=== PATIENT | female | born 1955 | race Caucasian/White ===

== ENCOUNTER 2024-02-16 13:18 | Emergency (ER) | payer MEDICARE ==
[~2024-02-16] VITALS: Ht 165.1 cm; Wt 87.1 kg
[2024-02-16] MEDS ORDERED: GABA-535 PO (13:52)
[2024-02-16] MEDS ORDERED: ONDA4TAB12 PO (13:52)
[2024-02-16] MEDS ORDERED: LIDO700A47 TOP (13:52)
[2024-02-16] MEDS ORDERED: MORP-92 PO (13:52)
[2024-02-16] MEDS ORDERED: ESCI-8 PO (13:52)
[2024-02-16 14:11] LABS: BILIRUBIN,URINE NEGATIVE (Neg); CLARITY,URINE SLIGHTLY CLOUDY (Clear); COLOR,URINE YELLOW (Yellow); GLUCOSE, URINE NEGATIVE (Neg); KETONES,URINE NEGATIVE (Neg); LEUKOCYTE ESTERASE ,URINE NEGATIVE (Neg); NITRITES, URINE NEGATIVE (Neg); OCCULT BLOOD,URINE NEGATIVE (Neg); PROTEIN,URINE NEGATIVE (Neg); UROBILINOGEN,URINE 0.2 E.U/dL (0.2-1.0)
[2024-02-16 14:17] LABS: RED BLOOD COUNT 3.82 X10'6 (4.20-5.60); RED CELL DISTRIBUTION WIDTH 16.5 % (11.5-14.5)
[2024-02-16 14:19] LABS: HEMATOCRIT 35.8 % (35.0-45.0); HEMOGLOBIN 11.7 g/dl (12.0-16.0); MEAN CORPUSCULAR HEMOGLOBIN 30.7 PG (27.0-31.0); MEAN CORPUSCULAR HGB CONC 32.7 g/dL (33.0-36.5); MEAN CORPUSCULAR VOLUME 93.6 FL (78-98); MEAN PLATELET VOLUME 7.1 FL (7.4-10.4); PLATELET COUNT 219 X10'3 (140-440); WHITE BLOOD COUNT 7.7 X10'3 (4.5-11.0)
[2024-02-16 14:23] LABS: ALANINE AMINOTRANSFERASE 24 U/L (12-78); ALBUMIN 3.4 G/DL (3.4-5.0); ALBUMIN/GLOBULIN RATIO 0.7 (1.1-1.5); ALKALINE PHOSPHATASE 110 IU/L (46-116); ANION GAP 8 (8-16); ASPARTATE AMINO TRANSFERASE 43 U/L (10-37); BLOOD UREA NITROGEN 6 MG/DL (7-18); BUN/CREATININE RATIO 8.3 (10.0-20.0); CALCIUM 9.2 MG/DL (8.5-10.1); CHLORIDE 104 MMOL/L (99-107); CREATININE 0.72 MG/DL (0.40-0.90); GLUCOSE 93 MG/DL (70-104); LIPASE 26 U/L (16-77); SODIUM 139 MMOL/L (135-145); TOTAL PROTEIN 8.5 G/DL (6.4-8.2); eCRCL 67 ML/MIN; eGFR 81 ML/MIN
[2024-02-16 14:23] LABS: SQUAMOUS EPITHELIAL CELL,UR FEW /LPF (FEW); UA COLLECTION TYPE CLN CATCH MIDSTREAM
[2024-02-16 14:24] LABS: BACTERIA,URINE NONE SEEN /HPF (Neg); RBC,URINE 0-2 /HPF (0-2); WBC,URINE 0-4 /HPF (0-4)
[2024-02-16] MEDS ORDERED: iohexol 300mg/ml 100ml inj. ONE (14:37)
[2024-02-16] MEDS: HYDROmorphone inj. 0.5 MG/0.5 ML DISP.SYRIN IV ONE (14:38)
[2024-02-16 15:14] LABS: TOTAL CELLS COUNTED 100
[2024-02-16 15:17] LABS: ANISOCYTOSIS 1+; PLATELET ESTIMATE NORMAL; TEAR DROP CELLS FEW
[2024-02-16 16:02] VITALS: BP 132/86; PULSE 86; RESP 16; TEMP 98.6; O2SAT 98
== END 2024-02-16 16:05 | disposition home or self-care (01) ==
LOC: ER 13:19
DX: K82.8 Other specified diseases of gallbladder (principal); R10.13 Epigastric pain; G89.29 Other chronic pain; M54.9 Dorsalgia, unspecified; Z72.89 Other problems related to lifestyle; Z88.8 Allergy status to other drugs, medicaments and biological substances; Z79.899 Other long term (current) drug therapy
CPT/HCPCS: 36415; 74177; 80053; 81001; 83690; 85007; 85025; 96374; 99285; J1170; Q9967

== ENCOUNTER 2024-09-19 08:36 | Emergency (ER) | payer MEDICARE ==
[~2024-09-19] VITALS: Ht 165.1 cm; Wt 91.2 kg
[~2024-09-19 08:36] MED LIST: ESCI-8 PO; GABA-535 PO; LIDO700A47 TOP; MORP-92 PO; ONDA-243 PO
[2024-09-19] MEDS: normal saline 1000ml 1,000 ML IV ONE (10:13)
[2024-09-19 10:31] LABS: BASOPHILS # (AUTO) 0.3 X10'3 (0-0.2); BASOPHILS % (AUTO) 3.9 % (0-1); EOSINOPHILS # (AUTO) 0.4 X10'3 (0-0.9); PLATELET COUNT 211 X10'3 (140-440); WHITE BLOOD COUNT 7.2 X10'3 (4.5-11.0)
[2024-09-19 10:33] LABS: EOSINOPHILS % (AUTO) 6.1 % (0-6); HEMATOCRIT 36.5 % (35.0-45.0); LYMPHOCYTES # (AUTO) 1.4 X10'3 (1.1-4.8); LYMPHOCYTES % (AUTO) 19.1 % (21-51); MEAN CORPUSCULAR HGB CONC 32.9 g/dL (33.0-36.5); MEAN CORPUSCULAR VOLUME 100.3 FL (78-98); MEAN PLATELET VOLUME 7.6 FL (7.4-10.4); MONOCYTES # (AUTO) 1.1 X10'3 (0-0.9); MONOCYTES % (AUTO) 14.9 % (2-12); RED BLOOD COUNT 3.64 X10'6 (4.20-5.60)
[2024-09-19 10:35] LABS: APTT 30 SECONDS (22-32); D-DIMER 0.53 MG/L FEU (0-0.50); INR 1.3 INR
[2024-09-19 10:39] LABS: ALBUMIN 2.9 G/DL (3.4-5.0); ANION GAP 4 (8-16); BLOOD UREA NITROGEN 4 MG/DL (7-18); BUN/CREATININE RATIO 6.3 (10.0-20.0); CALCIUM 8.6 MG/DL (8.5-10.1); CHLORIDE 103 MMOL/L (99-107); CREATININE 0.63 MG/DL (0.40-0.90); GLUCOSE 128 MG/DL (70-104); POTASSIUM 3.7 MMOL/L (3.5-5.1); PRO BRAIN NATRIURETIC PEPTIDE 500 PG/ML (0-125); SODIUM 136 MMOL/L (135-145); TOTAL CARBON DIOXIDE 29.1 MMOL/L (24-32); eCRCL 76 ML/MIN; eGFR > 90 ML/MIN
[2024-09-19 10:49] LABS: PROTHROMBIN TIME 13.5 SECONDS (9.0-12.0)
[2024-09-19] MEDS: HYDROcodone/acetaminophen 5mg/325mg tablet PO ONE (13:15)
[2024-09-19] MEDS: ondansetron 4mg rapidly disintigrating tab PO ONE (13:15)
[2024-09-19 13:20] VITALS: BP 146/72; PULSE 90; RESP 17; TEMP 98.5; O2SAT 94
== END 2024-09-19 13:31 | disposition home or self-care (01) ==
LOC: ER 08:37
DX: J06.9 Acute upper respiratory infection, unspecified (principal); Z88.8 Allergy status to other drugs, medicaments and biological substances
CPT/HCPCS: 36415; 71046; 80048; 83605; 83880; 84145; 84484; 85025; 85379; 85610; 85730; 87040; 87502; 87503; 93005; 96360; 96361; 99285; A4615; J7030

== ENCOUNTER 2025-03-16 10:54 | Inpatient (IN) | payer OTHER, MEDICARE ==
[~2025-03-16] VITALS: Ht 165.1 cm; Wt 111.0 kg
--- NOTE | 2025-03-16 11:22 | ELECTROCARDIOGRAPH REPORT ---
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 Siva Roberts Measurements Intervals [place] Rate: 98 P: 53 TX: 162 QRS: -56 QRSD: 112 T: 65 QT: 413 QTc: 528 Interpretive Statements Atrial-paced complexes Left anterior fascicular block Abnormal R-wave progression, late transition Minimal ST depression, lateral leads Prolonged QT interval Electronically Signed On 03-16-2025 18:54:[address] Siva Roberts Please click the below link to view image of tracing.
[2025-03-16 11:30] LABS: MEAN PLATELET VOLUME 7.3 FL (7.4-10.4); RED CELL DISTRIBUTION WIDTH 30.6 % (11.5-14.5)
[2025-03-16 11:52] LABS: CREATININE 1.21 MG/DL (0.40-0.90); PRO BRAIN NATRIURETIC PEPTIDE 2407 PG/ML (0-125); TOTAL CARBON DIOXIDE 38.1 MMOL/L (24-32); eCRCL 39 ML/MIN; eGFR 44 ML/MIN
[2025-03-16] MEDS: ondansetron/PF 4mg/2ml inj IV ONE (12:02)
--- NOTE | 2025-03-16 12:29 | RADIOLOGY REPORT ---
CHEST RADIOGRAPH Indication: CP Technique: Single frontal view of the chest was obtained COMPARISON: None FINDINGS: Lines and Tubes: None Lungs: Clear Pleura: No effusion. No pneumothorax. Cardiomediastinal contours: Unremarkable Bones: Unremarkable IMPRESSION: No acute disease.
--- NOTE | 2025-03-16 13:24 | Physician Documentation ---
History of Present Illness ~ Chief Complaint: Mechanical Fall Stated Complaint: FALL Time Seen by MD: 11:10 Primary Medical Doctor: RADHA Source: patient, family, EMS, EMS notes reviewed Mode of Arrival: EMS Exam Limitations: no limitations HPI Chief Complaint: Falls Caveat: None Independent Historians: Paramedics, History of Present Illness: Patient is a 69-year-old woman who comes in having fallen 3 times this morning. She is not know exactly why she fell. She remembers falling. She denies passing out. Patient does remember hitting her head. Patient denies any pain. Patient admits to drinking alcohol daily and last drank alcohol last evening at dinner. Patient denies any chest pain or abdominal pain. Patient has no worsening of her chronic respiratory failure secondary to CHF for which she takes 3 L of oxygen at home. Patient has noticed increasing tremors in her hands and extremities. Patient normally drinks 4 oz of alcohol in the evening with dinner daily. Review of systems: All systems were reviewed and are negative except for what is indicated in the history of present illness. Past Medical History: Chronic back pain, alcoholism, CHF on 3 L of oxygen at home Past Surgical History: Noncontributory Social History: Daily alcohol use, 51 years, no tobacco use or drug use Medications: Reviewed as documented Nursing Notes Allergies: Reviewed as documented in Nursing Notes Tetanus within 5 Years?: No Medication Reconciliation Allergies: Coded Allergies: brexpiprazole (Verified Allergy, Unknown, 02/16/24) valbenazine (Verified Allergy, Unknown, 02/16/24) Scheduled Escitalopram Oxalate (Escitalopram Oxalate), 15 MG PO DAILY, (Reported) Furosemide (Furosemide), 1 TAB PO DAILY, (Reported) Gabapentin (Gabapentin), 1 CAP PO TID, (Reported) Morphine Sulfate (Morphine Sulfate Er), 1 TAB PO TID, (Reported) Scheduled PRN Lidocaine (Lidocaine), 1-2 PATCH TOP DAILY PRN for pain, (Reported) ONDANSETRON ODT 4mg tablet (Ondansetron Odt), 1 TAB PO Q8H PRN for nausea/vomiting, (Reported) Past Medical History Past Medical History: Chronic Back Pain Past Surgical History: no surgical history Alcohol Use: Occasionally Drug Use: none Lives with: Family Lives In: Home Occupation: retired Review of Systems All Other Systems at this time: Reviewed and Negative ROS PATIENT DENIES ANY OTHER ACUTE SYMPTOMS OTHER THAN ABOVE. ALL OTHER SYSTEMS ARE NEGATIVE Physical Exam Vital Signs: Temperature: 97.0, Source: Oral, Heart Rate: 103, Respiratory Rate: 16, BP: 104/56, Pulse Oximetry: 95, Weight: 111.000 Oxygen Flow Rate: 3.0 Pulse Oximetry Reflects: adequate oxygenation Physical Exam General Appearance: MILD DISTRESS, ACUTELY AND CHRONICALLY ILL-APPEARING HEENT: Normal OP, moist oral mucosa, PERRL, EOMI, SCLERAL ICTERUS, ECCHYMOSIS OVER THE RIGHT FOREHEAD Neck: supple, normal ROM, trachea midline Pulmonary: No respiratory distress, CTA, BS equal Cardiac: RRR, no murmur, rub or gallop, GI: nondistended, soft, nontender, normal bowel sounds, no guarding, no rebound Extremities: normal ROM, 2+ PITTING RIGHT LOWER EXTREMITY EDEMA, 1+ PITTING LEFT LOWER EXTREMITY EDEMA, non-tender Skin: intact, dry, warm, JAUNDICE, SPIDER ANGIOMAS ON THE CHEST Neuro: AAOx3, speech is clear, no focal motor weakness, TREMORS IN HANDS AND UPPER EXTREMITIES Psych: normal affect, good eye contact, no apparent hallucination, normal speech Progress Results/Orders Results/Orders Orders - REED RAMIREZ MD Chest,Single View (03/16/25 11:08) Monitor (03/16/25 11:08) Saline Lock (03/16/25 11:08) Oxygen (03/16/25 11:08) Hs Troponin I W Calculations (03/16/25 14:08) Ct Head (03/16/25 11:16) Potassium Cl Inj (Potassium Cl Inj) (03/16/25 13:35) Page Hospitalist (03/16/25 13:40) Fill Out Med Reconciliation (03/16/25 13:40) Completed Orders - REED RAMIREZ MD Chest,Single View (03/16/25 11:08) Cbc/Diff (03/16/25 11:08) PBNP (03/16/25 11:08) Electrocardiogram (03/16/25 11:08) Hs Troponin I W Calculations (03/16/25 11:08) Hs Troponin I W Calculations (03/16/25 13:08) CMP (03/16/25 11:16) Ct Head (03/16/25 11:16) Ammonia (03/16/25 11:16) Ondansetron Inj. (Zofran 4mg/2ml Vial) (03/16/25 11:55) Aspirin 81mg Chew Tablet (Aspirin 81mg C (03/16/25 13:45) Electrocardiogram (03/16/25 13:43) Medications Received in ER Medications (Trade) Dose Ordered Sig/Shanna Route PRN Reason Start Time Stop Time Status Last Admin Dose Admin (Zofran 4mg/2ml vial) 4 mg ONCE ONCE IV 03/16/25 11:55 03/16/25 11:58 DC 03/16/25 12:02 4 MG Potassium Chloride 40 meq/ Sodium Chloride 520 ml @ 130 mls/hr ONCE ONCE IV 03/16/25 13:35 03/16/25 17:34 03/16/25 13:50 130 MLS/HR Vital Signs 03/16/25 03/16/25 03/16/25 03/16/25 11:02 11:15 11:30 11:45 Temp 97.0 Pulse 103 102 97 95 Resp 16 16 15 17 B/P (MAP) 104/56 112/37 (62) 105/49 (67) 104/54 (71) Pulse Ox 95 96 95 90 O2 Flow Rate 3.0 4.0 4.0 4.0 03/16/25 03/16/25 03/16/25 03/16/25 12:00 12:30 12:45 13:00 Pulse 94 94 88 86 Resp 17 17 13 13 B/P (MAP) 105/55 (72) 104/53 (70) 106/52 (70) 107/50 (69) Pulse Ox 96 95 93 95 O2 Flow Rate 4.0 4.0 4.0 03/16/25 03/16/25 13:15 13:27 Pulse 85 Resp 11 B/P (MAP) 111/51 (71) Pulse Ox 96 4 O2 Delivery Nasal Cannula* O2 Flow Rate 4 FiO2 36 Laboratory Tests Test 03/16/25 11:19 03/16/25 13:06 03/16/25 13:54 White Blood Count 9.5 Red Blood Count 3.16 L Hemoglobin 8.9 L Hematocrit 27.3 L Mean Corpuscular Volume 86.3 Mean Corpuscular Hemoglobin 28.2 Mean Corpuscular Hemoglobin Concent 32.7 L Red Cell Distribution Width 30.6 H Platelet Count 203 Mean Platelet Volume 7.3 L Neutrophils (%) (Auto) 71.4 Lymphocytes (%) (Auto) 10.9 L Monocytes (%) (Auto) 16.6 H Eosinophils (%) (Auto) 0.6 Basophils (%) (Auto) 0.5 Neutrophils # (Auto) 6.8 Lymphocytes # (Auto) 1.0 L Monocytes # (Auto) 1.6 H Eosinophils # (Auto) 0.1 Basophils # (Auto) 0.0 CBC Comment Sodium Level 128 L Potassium Level 2.5 *L Chloride Level 87 L Carbon Dioxide Level 38.1 H Anion Gap 3 L Blood Urea Nitrogen 6 L Creatinine 1.21 H Estimated GFR/1.73 m2 44 BUN/Creatinine Ratio 5.0 L Glucose Level 181 H Calcium Level 8.1 L Total Bilirubin 5.3 H Aspartate Amino Transf (AST/SGOT) 66 H Alanine Aminotransferase (ALT/SGPT) 14 Alkaline Phosphatase 161 H Ammonia 66 H Troponin I High Sensitivity 448 *H 1019 *H Pro-B-Type Natriuretic Peptide 2407 H Total Protein 7.6 Albumin 2.0 L Globulin 5.6 H Albumin/Globulin Ratio 0.4 L Chemistry Comments Troponin I High Sens Percent Delta 127 Troponin I Hi Sens Absolute Change 571 Medical Decision Making Findings Differential diagnosis includes but is not limited to: Traumatic brain injury, closed head injury, coagulopathy, hepatitis, alcoholic hepatitis, anemia, electrolyte abnormalities, fractures, contusions EKG independent interpretation: Performed at 11:20 a.m.. Normal sinus rhythm, heart rate 98, left axis deviation, left anterior fascicular block, normal ST segments Chest x-ray, single view, indication: Fall Independent interpretation: Lungs are clear, normal mediastinum, normal cardiac silhouette. No acute cardiopulmonary process Laboratory data independent interpretation: CBC: Moderate to severe anemia with a hemoglobin of 8.9 CMP: Hyponatremia with a potassium of 128, potassium 2.5 hypokalemia, elevated LFTs consistent with alcoholic hepatitis. Mildly elevated creatinine of 1.21. Toxicology: 66 1st troponin: 448 Pro BNP: 2407 Urinalysis: Emergency department course/medical decision-making: Patient presents with multiple falls this morning without significant injury. Patient has a minor closed head injury without evidence of traumatic brain injury on CT scan. Patient has no evidence of fractures. She has multiple contusions. Lab work shows an alcoholic hepatitis with moderate elevation in ammonia. This is likely the cause for her falls. Patient is oriented. Patient is also hyponatremic and hypokalemic. We will recommend admission. Patient isn't having chest pain but has an elevated troponin. Patient isn't thought to be having eight type 2 NSTEMI. This is likely cardiac leak and related to her organ dysfunction. Patient also has a mildly elevated creatinine of 1.21 above baseline, consistent with a mild acute kidney injury. Patient's troponin is has more than doubled. Repeat troponin is 1019. Patient is followed by Dr. Aponte and had a stress test as recently as one month ago that was negative. She was told that cardiac standpoint she is doing well. Patient also had an echo in the office. Has a significant anemia with a hemoglobin 8.9 as dropped from 12 in September 19, 2024. Test results, treatment plan and all the above reviewed with the patient and her . Recommend admission. Consultation/communications: 1:55 p.m.: Case discussed with the resident hospitalist, Dr. Chun. She will assess the patient for admission. Departure Time of Disposition: 13:25 Disposition: 09 ADMITTED INPATIENT Admitted to Inpatient Unit: to hospitalist Admission Level of Care: Med/Surg with Tele Impression: Primary Impression: Hypokalemia Additional Impressions: Hyponatremia Alcoholism Alcoholic hepatitis Qualified Codes: K70.10 - Alcoholic hepatitis without ascites Anemia Qualified Codes: D64.9 - Anemia, unspecified Elevated troponin Education Educated: Patient Educated regarding: diagnosis, treatment Critical Care Note Total Time (mins): 45 Critical Care Note Critical conditions addressed for impending deterioration include: cardiovascular, [employer] HELICOPTER, metabolic, renal, hepatobillary Associated risk factors involving deterioration include: metabolic changes, congestive heart failure, alcoholic hepatitis, renal insufficiency, The very real possibility of a deterioration of this patient's condition required the highest level of my preparedness for sudden, emergent intervention. I provided critical care services, which included medication orders, frequent reevaluations of the patient's condition and response to treatment, ordering and reviewing test results, and discussing the case with necessary consultants. Critical care time was exclusive of necessary procedure time. The critical care time associated with the care of the patient was 45 minutes. Signature Scribe Signature: No scribe Attestation: No scribe REED RAMIREZ MD Mar 16, 2025 13:24
--- NOTE | 2025-03-16 13:40 | RADIOLOGY REPORT ---
CT brain without contrast CLINICAL INDICATION: head injury Comparison: 09/19/2023 FINDINGS: The study was performed in a multidetector scanner. This study performed taking axial image s from the skull base up to the vertex. Both brain and bone windows are photographed. Dose lowering techniques have been used including automated exposure control and adjustment of mA and /or KV according to patient size. No intraparenchymal hemorrhage or edema. No extra-axial hemorrhage. No hydrocephalus or midline shift. Mild cortical sulcal prominence On bone windows no calvarial lesions or skull fractures. Paranasal sinuses clear IMPRESSION: 1. No acute intracranial pathology Computed Tomographic Radiation Dosimetry Report: Total CTDI vol = 58 mGy Total DLP = 1006 mGy-cm All CT scans at this medical facility are performed using dose modulation techniques as appropriate to a performed exam including the following: Automated exposure control was utilized; adjustment of the MA and/or KvP according to patient size; and use of iterative reconstruction technique.
[2025-03-16] MEDS: Potassium Cl inj 40 MEQ in normal saline 500ml IV soln 500 ML IV ONE (13:50)
--- NOTE | 2025-03-16 13:50 | ELECTROCARDIOGRAPH REPORT ---
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 Siva Roberts Measurements Intervals [place] Rate: 84 P: 52 CO: 161 QRS: -54 QRSD: 112 T: 42 QT: 453 QTc: 536 Interpretive Statements Sinus rhythm Left anterior fascicular block Abnormal R-wave progression, late transition Prolonged QT interval Electronically Signed On 03-16-2025 18:54:[address] Siva Roberts Please click the below link to view image of tracing.
[2025-03-16] MEDS ORDERED: FURO80TA3 PO (13:53)
[2025-03-16] MEDS ORDERED: magnesium sulf-water 4G/100mL 100 ML IV PRN (14:05)
[2025-03-16] MEDS ORDERED: ondansetron/PF 4mg/2ml inj IV PRN (14:05)
[2025-03-16] MEDS ORDERED: magnesium sulf-water 2g/50mL 50 ML IV PRN (14:05)
[2025-03-16] MEDS ORDERED: magnesium Cl slow-release 64mg tablet PO PRN (14:05)
[2025-03-16] MEDS ORDERED: haloperidol lactate 5mg/ml inj IM PRN (14:05)
[2025-03-16] MEDS ORDERED: dextrose 50%-water 50ml dispensing syringe IV PRN (14:05)
[2025-03-16 14:36] LABS: BANDS% (MANUAL) 1.0 % (0-10); BASOPHILS % (MANUAL) 1.0 % (0-1); LYMPHOCYTES % (MANUAL) 6.0 % (21-51); MONOCYTES % (MANUAL) 16.0 % (2-12); NEUTROPHILS % (MANUAL) 76.0 % (42-75)
[2025-03-16 14:37] LABS: PLATELET ESTIMATE NORMAL
[2025-03-16 14:38] LABS: INR 1.8 INR
[2025-03-16 14:41] LABS: % IRON SATURATION 13 % (11-46)
[2025-03-16] MEDS: PERFLUTREN PROTEIN-A MICROSPHR (Optison) 0.22 MG/ML 3ML VIAL IV ONE (14:43)
[2025-03-16] MEDS ORDERED: pantoprazole 40mg IV 80 MG in normal saline 100ml IV soln 100 ML IV ONE (15:30)
[2025-03-16] MEDS: furosemide 10 MG/1 ML 10ml inj IV ONE (15:35)
--- NOTE | 2025-03-16 15:36 | HISTORY AND PHYSICAL-Residence ---
History & Physical Providers to CC Resident Creating Document: DEVIKALLIE WONG CC: JOAQUIM ELDER MD ~ History of Present Illness Primary Medical Doctor[place] [facility] [place] Cardiology, Dr. Wray, Pulmonology Reason for Admit\Complaint: THREE FALLS SINCE THIS MORNING History of Present Illness 69-year-old female with PMH of chronic liver disease diagnosed three months ago, undergoing evaluation for chronic hypoxemic respiratory failure, chronic pancreatitis, ALBERTO presented to the ED with chief complaints of falls since today morning Falls- patient had three episodes of falls this morning 1st one occurred at around 9:00 a.m. when she got up from the bed slid slid down from the edge of the bed down to the floor and fell flat on her friend and hit her head. She did not lose consciousness. Then she tried to get up but she could not and for the next 20 minutes she slide herself to the washroom where she hit the door, and then when she was trying to get up on the commode she fell down and hit herself again. This time she texted her and he came and called 911. She did not have any previous episodes of fall Patient stated for the past few days she has been feeling nausea, abdominal pain associated with drowsiness, increased sleepiness and slowing of the activity. She was diagnosed with liver disease three months ago. She did have frequent nosebleeds. She is not taking blood thinners or NSAIDs. Denies melena, hematochezia, hematemesis. Her last colonoscopy done 2-3 years ago was normal and she had EGD done by Dr. Kruger approximately 6-8 months ago, patient stated that showed nonbleeding ulcer. Denies constipation. Last bowel movement was t chaz morning She was having exertional dyspnea and pedal edema for the past one year and she is undergoing workup. She is taking Lasix for that. She has seen OIL HOUSE ATTENDANT at Dr. Aponte's office recently month ago and was told her heart was normal. Patient stated an echo and stress test was done which were normal. She started using oxygen at about 2 L/min in her home for the past three weeks, and she stated she is undergoing workup with Dr. Wray, regarding her respiratory failure. She is supposed to see Dr. Wray on 03/18 in his clinic Allergies: Coded Allergies: brexpiprazole (Verified Allergy, Unknown, 02/16/24) valbenazine (Verified Allergy, Unknown, 02/16/24) Home Medications Home Medications Active Reported Furosemide 80 Mg Tablet 1 Tab PO DAILY Ondansetron Odt (Ondansetron HCl) 4 Mg Tab.rapdis 1 Tab PO Q8H PRN Lidocaine 5 % Adh..patch 1-2 Patch TOP DAILY PRN Morphine Sulfate Er (Morphine Sulfate) 15 Mg Tablet.er 1 Tab PO TID Escitalopram Oxalate 10 Mg Tablet 15 Mg PO DAILY Gabapentin 400 Mg Capsule 1 Cap PO TID Past Medical History Past Medical History Osteoporosis on Fosamax She is undergoing evaluation with Dr. Wray for chronic hypoxemic respiratory failure, uses 2 L of oxygen at home Nonspecific colitis Obstructive sleep apnea Chronic pancreatitis Chronic liver disease diagnosed three months ago Chronic back pain Past Surgical History Surgical History Comment Back and cervical fusion surgery Bowel resection Past Social History Social History Comment Ex-smoker, quitted 20 years ago, history of 10 pack years Drinks 4 oz of bourbon a day Denies illicit drug use Independent for ADLs Lives with her Alcohol Use: Occasionally Drug Use: None Lives with: Family Lives In: Home Occupation: retired ROS All Other Systems: Reviewed and Negative ROS ROS Constitutional: Positive for dizziness, increased drowsiness, decreased appetit e No fever, HEENT: No blurring of the vision, No sore throat,, tinnitus, positive for nosebleeds Cardiovascular: No chest pain/discomfort, palpitations, syncope. Positive for pedal edema, shortness of breath Respiratory: No cough,, hemoptysis Gastrointestinal: No vomiting. No diarrhea, constipation, melena. Positive for abdominal pain, nausea, abdominal distention Genitourinary: No frquency, urgency, incontinence, nocturia. No dysuria, hematuria Musculoskeletal: No arthralgia, myalgia, positive for back pain Endocrine: No fatigue, polydipsia, polyuria. No heat or cold intolerance Neurologic: No headache, vertigo. No weakness, numbness or tingling of extremities Psychiatric: No hallucinations/delusions, no anhedonia, no suicidal ideation Hematologic: Nosebleed Reviewed in full. All negative except for pertinent positives in HPI Exam Vitals: Vital Signs Date Time Temp Pulse Resp B/P (MAP) Pulse Ox O2 Delivery O2 Flow Rate FiO2 03/16/25 13:27 4 Nasal Cannula* 4 36 03/16/25 13:15 85 11 111/51 (71) 03/16/25 11:02 97.0 General: General: Elderly female, AAO x4, obese, not in apparent distress, appears pale and yellowish Head: Normocephalic with an atraumatic Eyes: Pupils- 3mm, reacting to light, conjunctiva- icteric Nose and throat: No polyps, septum- normal, no mucosal ulcers, angry red, beefy tongue and telangiectasias on the lip Chest-multiple telangiectasias, spider nevi present over the chest Neck: Supple, no lymphadenopathy, no carotid bruit Respiratory: No use of accessory muscles of respiration, Bilateral normal breath sounds heard. No wheeze, rhochi or creps Cardiac: S1-S2 heard, rythm regular, no gallop/murmur Abdomen: Obese, distended, fluid thrill not present, no tenderness, no organomegaly, bowel sounds- heard Extremities: no clubbing, 2+ pitting pedal edema, no deformities, peripheral pulses- 2+ Skin: warm and dry, no rash, bruises present over both knees Neuro: Flapping tremors present,no focal neurological deficit Diagnostic Data Last Recorded Lab Results: 03/16/25 1119 03/16/25 1119 Diagnostic Data: Laboratory Tests Test 03/16/25 11:19 Prothrombin Time 17.2 SECONDS (9.0-12.0) H INR International Normalized Ratio 1.8 INR Coagulation Comments Advance Care Planning Advanced Care plannin - 30 Minutes (Code status is discussed with her and she opted for DNR) Additional Plan 69-year-old female with PMH of chronic liver disease diagnosed three months ago, undergoing evaluation for chronic hypoxemic respiratory failure, chronic pancreatitis, ALBERTO presented to the ED with chief complaints of falls since today morning Falls -presented with the episodes of fall since this morning, history of drowsiness, increased sleepiness for the past few days -patient did not lose consciousness however the did hit her head -Ct head- no skull fracture or hemorrhage. However if mentation is worsening, we will recommend repeat CT head to look for SDH especially as she has alcohol abuse -continue fall precautions -PT/OT Hepatic encephalopathy, grade 2 -she does have symptoms like increased drowsiness, increased sleepiness and positive for flapping tremor -ammonia is elevated to 63 -we will start on lactulose 20 mg q.6, rifaximin 550 mg q.12, goal is to have at least 3-4 soft bowel movements a day Chronic liver disease Decompensated cirrhosis, portal hypertension- MELD na- 27, CTP class C Secondary to alcohol etiology Hyperbilirubinemia -follow up on hepatitis-B and hepatitis-C serology -follow up up on ultrasound abdomen to look for liver size, spleen and ascites -serum bilirubin 5.3 with direct of 3.1, AST/ALT/ALP 66/14/161- pattern likely in favor of alcoholic hepatitis -if ultrasound is showing ascites then patient might need diagnostic and therapeutic paracentesis -monitor CMP daily Normocytic anemia Upper GI bleed unable to exclude -H&H 8.9/27.3, with elevated RDW -iron low, TIBC low, T sat 13 with ferritin 27 -likely a combination of iron-deficiency anemia and anemia of chronic disease -follow up on stool for occult blood -patient is started on Protonix 80 mg one dose now followed by 40 mg IV b.i.d. -Dr. Mirelse rotary cutter operator consulted regarding the EGD -monitor H&H q.6 Hyponatremia -hypervolemic hyponatremia -follow up on urine lytes and urine osmolality -started on IV Lasix 20 mg one dose today followed by 20 mg once daily Hypokalemia -potassium 2.5 -replacement for potassium protocol Type 2 MO -troponin x3 -448, 1019, 1135 -repeat EKG also done which showed left anterior fascicular block, prolonged QTC of 0.53, delayed transition of R-wave -this patient had recent stress test done a month ago and as per patient which was normal, and as risk of bleeding is high with HAS-BLED score of >5, and outweighs the benefits at this time, heparin drip is not initiated -however we will continue to monitor troponins, and consulted Cardiology Dr. Alvarez. He recommended cautious approach heparin subQ t.i.d., change to monitor troponins and hemogram, and if hemogram is stable and troponins are trending up- then we can do a heparin drip -statin not started in view of elevated LFTs and aspirin and started in view of possible GI bleed LYNDSEY -baseline creatinine 0.6 -LYNDSEY likely secondary to prerenal/cardiorenal syndrome -follow up on urine lytes, ultrasound abdomen -expert resolving of LYNDSEY with Lasix Acute on chronic hypoxemic respiratory failure Acute heart failure with unknown ejection fraction -usually 2 L of oxygen at home oxygen requirements went up to four -chest x-ray showed pulmonary congestion -elevated proBNP with signs of fluid overload -started on IV Lasix 20 mg once daily i/vo soft blood pressure, and aldactone 12.5 mg once daily -monitor input output chart -follow up on 2D echo -will initiate GDMT based on ejection fraction Alcohol abuse patient is given counseling regarding alcohol abuse -started on moderate alcohol withdrawal p protocol -SUN and/SS consult Chronic pancreatitis Dilated CBD -CT abdomen done in 2023 showed multiple calcification in the pancreatitis, dilatation of CBD up to 1.2 cm and dilatation of pancreatic duct up to 6 mm, we will do a repeat CT abdomen to look for changes -currently no signs of acute pancreatitis -follow up on lipase ALBERTO -CPAP during the night Osteoporosis -taking Fosamax at home Home medication of Lexapro is not started in view of hyponatremia, resume Lexapro once hyponatremia is resolved. Gabapentin is now started in view of hepatic encephalopathy, resume once hepatic encephalopathy is resolved She is taking MS Contin at home which is not indicated for patients with CLD and renal failure. If opioids have to be use consider hydromorphone or oxycodone Code Status: DNR Line/tube: PIV DVT prophylaxis: SCD Nutrition: Renal PT: Yes Prognosis: Guarded Disposition: Continue care in PCU, Shira Chun MD IM PGY-3 resident Date of Service: Mar 16, 2025 Billing Provider: JOAQUIM ELDER MD, HARIVARSHA, RES Mar 16, 2025 15:36
[2025-03-16 15:50] LABS: ETHANOL < 10 MG/DL (<10)
[2025-03-16 16:36] VITALS: PULSE 84; RESP 18; O2SAT 95
[2025-03-16 17:30] LABS: MEAN PLATELET VOLUME 7.8 FL (7.4-10.4); RED CELL DISTRIBUTION WIDTH 30.2 % (11.5-14.5)
[2025-03-16 17:49] LABS: CREATININE 1.04 MG/DL (0.40-0.90); TOTAL CARBON DIOXIDE 39.9 MMOL/L (24-32); eCRCL 46 ML/MIN; eGFR 53 ML/MIN
[2025-03-16 18:00] VITALS: BP 109/59; PULSE 89; RESP 15; TEMP 97.9; O2SAT 92
[2025-03-16 18:07] LABS: OSMOLALITY 273 MOSM/K (280-300)
[2025-03-16] MEDS: rifaximin 550mg tablet PO SCH (19:54)
[2025-03-16] MEDS: heparin, porcine 5000 units/ml vial SQ SCH (19:54)
[2025-03-16] MEDS: lactulose 20gm/30ml cup PO SCH (19:54)
[2025-03-16] MEDS: docusate sod 100mg capsule PO SCH (19:55)
[2025-03-16 20:00] VITALS: RESP 15; O2SAT 92
[2025-03-16] MEDS: K and/or MAG REPLACEMENT MC SCH (20:00)
[2025-03-16 21:01] VITALS: PULSE 84; RESP 18; O2SAT 96
[2025-03-16] MEDS: CALCIUM GLUC 1gm/50ml NACL,iso 50 ML IV ONE (21:40)
[2025-03-16] MEDS: thiamine 100mg/ml 2ml inj. IV SCH (21:40)
[2025-03-16] MEDS: potassium Cl 20 mEq SR tablet PO PRN (21:46)
[2025-03-16 21:55] VITALS: PULSE 85; RESP 16; O2SAT 91
[2025-03-16 21:57] LABS: MEAN PLATELET VOLUME 7.4 FL (7.4-10.4); RED CELL DISTRIBUTION WIDTH 30.4 % (11.5-14.5)
[2025-03-16 22:00] VITALS: BP 117/58; PULSE 94; RESP 19; TEMP 98.6; O2SAT 92
[2025-03-16] MEDS: ibuprofen tablet 400 MG TABLET PO ONE (22:18)
--- NOTE | 2025-03-16 22:30 | ELECTROCARDIOGRAPH REPORT ---
[facility] Test Date: 2025-03-16 Test Time: 22:28:34 Pat Name: CADE SOUZA Department: [facility] 3S Patient ID: [facility]-[id number] Room: [place] [address] A Gender: F Bi Consultant: : 1955 Requested By: ELADIO AVELAR Order Number: [id number] Reading MD: Dr. Silvio Denson Measurements Intervals [place] Rate: 81 P: 56 VA: 159 QRS: -47 QRSD: 117 T: 63 QT: 470 QTc: 546 Interpretive Statements Sinus rhythm Ventricular premature complex Left anterior fascicular block Electronically Signed On 03-17-2025 13:12:[address] Silvio Denson Please click the below link to view image of tracing.
[2025-03-17] VITALS (10 sets, daily range): BP systolic 92–126; BP diastolic 41–88; PULSE 62–90; RESP 2–22; TEMP 97.6–98.5; O2SAT 92–99
--- NOTE | 2025-03-17 01:21 | RADIOLOGY REPORT ---
Exam: CT CT ABDOMEN History: pancreatitia, CBD dilatation Comparison Study: CT abdomen/pelvis 02/16/2024 Technique: Multidetector spiral CT of the abdomen was performed from lung bases to iliac crest. Imag ing was performed without IV contrast. Axial, coronal and sagittal multiplanar reformats were obtain ed from the axial data set by the technologist. Radiation Dose : CT Dose: CTDI volume is mGy. Dose-length product is mGy*cm Findings: Evaluation of solid organs is limited due to lack of intravenous contrast use. Lung Bases: Trace right-sided pleural effusion mild bibasilar subsegmental atelectasis. Liver: Liver is mildly enlarged. No definite focal lesions noted on this noncontrast study. No evide nce of intrahepatic biliary ductal dilatation. Gallbladder and Biliary Tree: Gallbladder is distended but similar in appearance compared to the pr ior CT scan from January 2024. No calcified gallstones noted. Common bile duct is dilated measuring up t o 13 mm at the level of the pancreatic head, similar in appearance compared to the prior CT scan from January 2024. Spleen: No abnormality demonstrated. Pancreas: Pancreas is atrophic with dilatation of the pancreatic duct and calcifications in the wil on of the pancreatic head consistent with chronic pancreatitis, similar in appearance compared to the prior CT scan from January 2024. Adrenal Glands: No abnormality demonstrated. Kidneys: No abnormality demonstrated. No evidence of renal calculus or hydronephrosis. Bowel: Stomach appears grossly unremarkable. No abnormally dilated or thick-walled loops of bowel no sharri in the visualized abdomen. Ascites: Small amount of ascites present predominantly around the liver which was not present on the prior CT scan from January 2024. Lymphadenopathy: No evidence of lymphadenopathy. Abdominal Wall and Mesentery: Unremarkable. Vasculature: Calcified plaque in abdominal aorta and iliac arteries without aneurysmal dilatation. Musculoskeletal: No bony lesions or acute fracture. S/p posterior decompression and instrumented fus ion at L4-L5. Bones appear osteopenic. IMPRESSION: Mild hepatomegaly. No definite focal lesions noted on this noncontrast study. No intrahepatic biliar y ductal dilatation. Small amount of ascites present predominantly around the liver which was not pre sent on the prior study. Gallbladder is distended but similar in appearance compared to the prior CT scan from January 2024. No calcified gallstones. Dilated common bile duct measuring up to 13 mm, similar in appearance compared to the prior CT scan from January 2024. Pancreas is atrophic with dilatation of pancreatic duct and calcifications consistent with chronic pancreatitis, similar in appearance compared to the prior CT scan from January 2024. Radiation optimization: All CT scans at this facility use at least one of these dose optimization madi hniques: automated exposure control mA and/or kV adjustment per patient size (includes targeted exam s where dose is matched to clinical indication) or iterative reconstruction.
[2025-03-17 06:35] LABS: MEAN PLATELET VOLUME 7.3 FL (7.4-10.4); RED CELL DISTRIBUTION WIDTH 30.1 % (11.5-14.5)
[2025-03-17 06:45] LABS: INR 1.9 INR
[2025-03-17 07:03] LABS: CREATININE 1.07 MG/DL (0.40-0.90); LDL CHOLESTEROL 70 MG/DL (50-100); eCRCL 45 ML/MIN; eGFR 51 ML/MIN
[2025-03-17 07:07] LABS: PLATELET ESTIMATE NORMAL
[2025-03-17 07:20] LABS: CHOL/HDL RATIO 6.3 (0.00-4.99); PHOSPHORUS 2.2 MG/DL (2.3-4.5)
[2025-03-17 07:30] LABS: TOTAL CARBON DIOXIDE 40.3 MMOL/L (24-32)
[2025-03-17] MEDS: folic acid 1mg/0.2ml inj IV SCH (08:51)
--- NOTE | 2025-03-17 09:07 | RADIOLOGY REPORT ---
INDICATION: LIVER CIRRHOSIS, LYNDSEY TECHNIQUE: Multiple real-time sonographic images of the abdomen were obtained. COMPARISON: CT CT ABDOMEN on DOS: 03/16/25 FINDINGS: Liver is increased in echogenicity. Mildly nodular contours. The liver measures 15.5 cm. No intrahepatic biliary ductal dilatation is noted. The gallbladder wall measures 0.3 cm and is unremarkable. No gallstones or gallbladder sludge. No pericholecystic fluid or edema. The common duct measures 0.6 cm and is unremarkable. The right kidney measures 9.3 cm. No hydronephrosis. The left kidney measures 9.9 cm. No hydronephros is. The spleen measures 11.4 cm, within normal limits. The echogenicity is within normal limits. The pancreas is not well visualized due to obscuration from bowel gas. The visualized portions of the IVC and aorta are grossly unremarkable. IMPRESSION: Small volume ascites. Hepatic steatosis. Mild nodularity may represent early changes of cirrhosis. Small volume ascites.
[2025-03-17] MEDS: potassium Cl 40MEQ/1/2NS 520ml 520 ML IV PRN (11:27)
--- NOTE | 2025-03-17 14:33 | CARDIOLOGY REPORT ---
APPROVED REPORT EXAM: Limited 2D, Doppler, and color-flow Echocardiogram. Patient Location: 3025 A Blood Pressure: 110/50 mmHg Heart Rate: 84 bpm Rhythm: SINUS Indications CORONARY ARTERY DISEASE HS TROPONIN 448, 1019, 1135, 1575, 1710, 1451 ELEVATED PROBNP 2407 Circuit Board Drafter: Kaylan Aponte MD / Consult: Daquan Alvarez MD Previous echo: recent echo at [facility], unable to obtain - after hours 2D Dimensions IVSd 0.7 (0.7-1.1cm) LVDd 6.2 cm PWd 0.9 (0.7-1.1cm) IVSs 1.0 (0.8-1.2cm) LVDs 3.6 (2.5-4.0cm) PWs 1.4 (0.8-1.2cm) LVEF(%) 61.0 (>50%) FS (%) 41.3 % SV 136.9 ml CO 11.4 L/min M-Mode Dimensions Left Atrium(MM) 5.03 (2.5-4.0cm) Aortic Root 3.34 (2.2-3.7cm) Aortic Cusp Exc 1.69 (1.5-2.0cm) Aortic Valve AoV Peak Danilo. 161.2 cm/s AO Peak GR. 10.4 mmHg Tricuspid Valve TR P. Velocity 305 cm/s RAP ESTIMATE 10 mmHg TR Peak Gr. 37 mmHg RVSP 47 mmHg LEFT VENTRICLE Dilated LV size and wall thickness. Overall systolic function is normal. Overall LVEF is 55-60%. RIGHT VENTRICLE RV appears mildly dilated with normal systolic function. RVSP is estimated at 47 mmHg. ATRIA Left atrium appears moderately dilated. AORTIC VALVE Trileaflet AV appears mildly sclerotic without stenosis or insufficiency. MITRAL VALVE Mild MV annular calcification without stenosis. Trace regurgitation. TRICUSPID VALVE TV appears structurally normal with trace regurgitation. PULMONIC VALVE Normal PV without stenosis, physiologic insufficiency. GREAT VESSELS Aortic root is normal in size. PERICARDIUM Trivial circumferential pericardial effusion without hemodynamic compromise. Other Information Study Quality: Adequate Conclusion Overall LVEF is 55-60%. Dilated LV size and wall thickness. Overall systolic function is normal. RV appears mildly dilated with normal systolic function. RVSP is estimated at 47 mmHg. Trileaflet AV appears mildly sclerotic without stenosis or insufficiency. Mild MV annular calcification without stenosis. Trace regurgitation. TV appears structurally normal with trace regurgitation. Normal PV without stenosis, physiologic insufficiency. Trivial circumferential pericardial effusion without hemodynamic compromise.
--- NOTE | 2025-03-17 15:41 | PROGRESS NOTE- Residence ---
Progress Note - Resident Providers to CC Resident Creating Document: MIRIAN MCDANIELS, RES ~ Antibiotic Timeout Antibiotic Ordered?: No Subjective Patient is seen and examined at bedside. She complained of mild epigastric tenderness with no other overnight symptoms. She appeared alert oriented and was not encephalopathic today. She was educated regarding alcohol cessation and she completely understands the risks of continued alcohol intake. She also is scheduled for an EGD tomorrow in a.m.. Patient had 3 bowel movements since yesterday Objective Vital Signs Date Time Temp Pulse Resp B/P (MAP) Pulse Ox O2 Delivery O2 Flow Rate FiO2 03/17/25 11:27 98.5 83 15 110/50 (70) Nasal Cannula 2.0 03/17/25 03:44 95 28 Result Diagram: 03/17/2560503/17/25605 General: Elderly female, alert and oriented x4, overweight, not exhibiting any apparent distress Head: Normal shape and size, no trauma Eyes: Pupils- 3mm, responsive to light, conjunctiva- yellowish Nose and throat: No nasal polyps, septum- normal, no mucosal ulcers Chest: Multiple small dilated blood vessels, spider nevi visible across the chest Neck: Flexible, no swollen lymph nodes, no carotid bruits Respiratory: No use of accessory muscles for breathing, bilateral normal breath sounds present. No wheezing, rhonchi, or crackles Cardiac: S1-S2 audible, rhythm regular, no gallops or murmurs Abdomen: Overweight, distended, no fluid thrill noted, mild epigastric tenderness, no enlarged organs, bowel sounds audible Extremities: No signs of clubbing, 2+ pitting edema in feet, no deformities, peripheral pulses- 2+ Skin: Warm and dry, no rashes, bruises noted on both knees Neuro: No flapping tremors today, no focal neurological deficits present Coagulation Studies Laboratory Tests Test 03/17/25 06:06 Prothrombin Time 18.3 SECONDS (9.0-12.0) H INR International Normalized Ratio 1.9 INR Coagulation Comments Advance Care Planning Advanced Care plannin - 30 Minutes Assessment Assessment 69-year-old female with PMH of chronic liver disease diagnosed three months ago, undergoing evaluation for chronic hypoxemic respiratory failure, chronic pancreatitis, ALBERTO presented to the ED with chief complaints of falls and was encephalopathic on admission. EGD tomorrow Plan Plan 1. Mechanical Falls x3 (03/16/25) Three falls on the day of admission while trying to get out of bed and use the commode. No LOC, but she hit her head and knees. Likely multifactorial: hepatic encephalopathy (grade 2), weakness from malnutrition and diuresis, possible orthostasis Plan: CT head: negative for acute bleed; repeat only if mentation worsens (alcohol use, can increase SDH risk). Fall precautions, PT/OT evaluation. Monitor orthostatic vitals. 2. Hepatic Encephalopathy (Grade 2) Symptoms: Drowsiness, flapping tremor, AMS on arrival. Ammonia 63 (repeat ordered). Now alert and oriented, answering all questions appropriately. Plan: Start Lactulose 20g q6h (titrate to 34 BMs/day). Rifaximin 550 mg BID. Hold gabapentin and MS Contin Pain management with hydromorphone 3. Decompensated Alcoholic Cirrhosis with Portal Hypertension Alcohol use disorder MELD-Na 27, Child-White Class C. Hyperbilirubinemia (T bili 5.7), AST 61, ALP 126. INR 1.8, PT 17.2 Plan: Monitor CMP, INR daily. Hepatitis B & C serologies pending. Continue alcohol cessation counseling Consider paracentesis if ascites worsens (currently small-volume) 4. Acute on Chronic Hypoxemic Respiratory Failure Home O2 2 L/min for 3 weeks, now requiring 4 L/min. Onset of shortness of breath suddenly 2 weeks ago. Seen by Dr. Wray (roof truss machine tender); PFTs done but results not available. Saw Dr. Aponte (loader helper); recent stress test and echo reported normal per patient. CXR: Pulmonary congestion. proBNP elevated. Echocardiogram showed: Overall LVEF is 55-60%. Trivial circumferential pericardial effusion without hemodynamic compromise. Plan: Monitor respiratory status. IV Lasix 20 mg daily + strict I/O + low Na diet. Continue aldactone 12.5 mg 5. Type 2 NSTEMI Troponin trend: 1575, 17 10, 1451 EKG: LAFB, prolonged QTc (0.53), no ST-elevation. Likely demand ischemia from sepsis/hypoxia/anemia. Plan: Continue telemetry. ASA not given due to possible GI bleed. No anticoagulation at present (HAS-BLED > 5). Dr. Alvarez (cardiology) recommends SQ heparin TID; hold heparin drip for now, Trend troponin tomorrow and if it continues to rise and hemoglobin is stable consider starting heparin drip, reconsult Cardiology Dr. Aponte (patient follows outpatient) 6. Normocytic Anemia (Hgb 8.9, Ferritin 27, TIBC low) Iron panel: Consistent with mixed iron deficiency + anemia of chronic disease. No overt GI bleed, but UGIB cannot be ruled out. FOBT pending Plan: Protonix 80 mg x1, then 40 mg IV BID. GI consult placed (Dr. Mireles); plan for EGD tomorrow Monitor H/H Q6H. PRBC transfusion if Hgb <7 or symptomatic. NPO after midnight 7. Hypokalemia Potassium 2.6 today (was 2.5 yesterday). Plan: IV KCl replacement per protocol. Monitor BMP Q12H. Magnesium 1.8, maintain >2 8. LYNDSEY on CKD Creatinine stable at 1.07 (baseline 0.6). Likely cardiorenal syndrome / volume depletion / hepatorenal component. Plan: Avoid nephrotoxins. Daily BMP, monitor fluid status. IV Lasix continued with close I/O monitoring. 9. Chronic Pancreatitis with CBD Dilation CT Abdomen (2023 and current): Chronic pancreatitis with CBD dilation 13 mm, pancreatic duct 6 mm. No current epigastric tenderness. Lipase 18 Plan: Monitor symptoms and LFTs. Outpatient follow up 10. Chronic Back Pain History of spine surgery, ineffective epidural injection. MS Contin at home not appropriate in cirrhosis. Plan: Pain management: hydromorphone PRN. Avoid gabapentin and morphine due to hepatic clearance. 11. Malnutrition / Vitamin Deficiency Physical signs: Muscle wasting, glossitis, telangiectasias, spider nevi. Plan: Multivitamins + thiamine + folate supplementation. Renal diet with protein repletion. Consider nutrition consult. 12. ALBERTO Uses CPAP at night. Continue inpatient if brought from home. 13. Osteoporosis Taking Fosamax at home 14. Hyponatremia Hypervolemic hyponatremia Improving 130 today Follow up on urine lytes and urine osmolality Continue IV Lasix 20 mg once daily, monitor sodium 15 Metabolic Alkalosis Likely contraction alkalosis secondary to ongoing diuretic use (Lasix) and associated hypokalemia. Serum bicarbonate (CO2) elevated to 40.3, K 2.6. Plan: Replete potassium aggressively (target >3.5). Monitor magnesium and correct if low. Hold or reduce diuretic dose if bicarbonate continued increases Monitor ABG if any worsening of respiratory/ mental status. Code Status: DNR Line/tube: PIV DVT prophylaxis: Heparin SQ Nutrition: Renal PT: Yes Mirian Mcdaniels MD Internal Medicine Resident, PGY-2 Date of Service: Mar 17, 2025 Billing Provider: JOAQUIM ELDER MD, GAURAV, RES Mar 17, 2025 15:41
--- NOTE | 2025-03-17 16:11 | CONSULTATION REPORT - RESIDENT ---
Consult Providers to CC Resident Creating Document: MIRIAN MCDANIELS RES History of Present Illness Reason for Admit\Complaint: Falls History of Present Illness A 69-year-old female with a history of chronic liver disease, chronic hypoxemic respiratory failure, and chronic pancreatitis presented to the emergency department after experiencing multiple falls that morning. The first fall occurred when she slid off her bed, hitting her head but not losing consciousness. After struggling to get up, she fell again while attempting to use the commode, prompting her to call 911 due to her inability to stand. She reported feeling nausea, abdominal pain, drowsiness, and decreased activity over the past few days, along with a history of frequent nosebleeds. She is not on blood thinners and denies gastrointestinal bleeding, with prior normal colonoscopy and EGD results showing a nonbleeding ulcer. The patient has also been experiencing exertional dyspnea and pedal edema for the past year, for which she is taking Lasix. She has been using supplemental oxygen at home for the past three weeks and is scheduled for further evaluation with a specialist regarding her respiratory issues. Allergies: Coded Allergies: brexpiprazole (Verified Allergy, Unknown, 02/16/24) valbenazine (Verified Allergy, Unknown, 02/16/24) Home Medications Home Medications Active Reported Furosemide 80 Mg Tablet 1 Tab PO DAILY Ondansetron Odt (Ondansetron HCl) 4 Mg Tab.rapdis 1 Tab PO Q8H PRN Lidocaine 5 % Adh..patch 1-2 Patch TOP DAILY PRN Morphine Sulfate Er (Morphine Sulfate) 15 Mg Tablet.er 1 Tab PO TID Escitalopram Oxalate 10 Mg Tablet 15 Mg PO DAILY Gabapentin 400 Mg Capsule 1 Cap PO TID Past Medical History Past Medical History Osteoporosis on Fosamax She is undergoing evaluation with Dr. Wray for chronic hypoxemic respiratory failure, uses 2 L of oxygen at home Nonspecific colitis Obstructive sleep apnea Chronic pancreatitis Chronic liver disease diagnosed three months ago Chronic back pain Past Surgical History Surgical History Comment Back and cervical fusion surgery Bowel resection Past Social History Social History Comment Ex-smoker, quitted 20 years ago, history of 10 pack years Drinks 4 oz of bourbon a day Denies illicit drug use Independent for ADLs Lives with her ROS ROS Reviewed in full. All negative except for pertinent positive HPI. Exam Vitals: Vital Signs Date Time Temp Pulse Resp B/P (MAP) Pulse Ox O2 Delivery O2 Flow Rate FiO2 03/17/25 11:27 98.5 83 15 110/50 (70) Nasal Cannula 2.0 03/17/25 03:44 95 28 General: General: Elderly female, alert and oriented x4, overweight, not exhibiting any apparent distress Head: Normal shape and size, no trauma Eyes: Pupils- 3mm, responsive to light, conjunctiva- yellowish Nose and throat: No nasal polyps, septum- normal, no mucosal ulcers Chest: Multiple small dilated blood vessels, spider nevi visible across the chest Neck: Flexible, no swollen lymph nodes, no carotid bruits Respiratory: No use of accessory muscles for breathing, bilateral normal breath sounds present. No wheezing, rhonchi, or crackles Cardiac: S1-S2 audible, rhythm regular, no gallops or murmurs Abdomen: Overweight, distended, no fluid thrill noted, mild epigastric tenderness, no enlarged organs, bowel sounds audible Extremities: No signs of clubbing, 2+ pitting edema in feet, no deformities, peripheral pulses- 2+ Skin: Warm and dry, no rashes, bruises noted on both knees Neuro: No flapping tremors today, no focal neurological deficits present Diagnostic Data Last Recorded Lab Results: 03/17/25 0606 03/17/25 0606 Diagnostic Data: Laboratory Tests Test 03/17/25 06:06 Prothrombin Time 18.3 SECONDS (9.0-12.0) H INR International Normalized Ratio 1.9 INR Coagulation Comments Additional Plan 1. Mechanical Falls x3 (03/16/25) Three falls on the day of admission while trying to get out of bed and use the commode. No LOC, but she hit her head and knees. Likely multifactorial: hepatic encephalopathy (grade 2), weakness from malnutrition and diuresis, possible orthostasis Plan: CT head: negative for acute bleed; repeat only if mentation worsens (alcohol use, can increase SDH risk). Fall precautions, PT/OT evaluation. Monitor orthostatic vitals. 2. Hepatic Encephalopathy (Grade 2) Symptoms: Drowsiness, flapping tremor, AMS on arrival. Ammonia 63 (repeat ordered). Now alert and oriented, answering all questions appropriately. Plan: Start Lactulose 20g q6h (titrate to 34 BMs/day). Rifaximin 550 mg BID. Hold gabapentin and MS Contin Pain management with hydromorphone 3. Decompensated Alcoholic Cirrhosis with Portal Hypertension Alcohol use disorder MELD-Na 27, Child-White Class C. Hyperbilirubinemia (T bili 5.7), AST 61, ALP 126. INR 1.8, PT 17.2 Plan: Monitor CMP, INR daily. Hepatitis B & C serologies pending. Continue alcohol cessation counseling Consider paracentesis if ascites worsens (currently small-volume) 4. Acute on Chronic Hypoxemic Respiratory Failure Home O2 2 L/min for 3 weeks, now requiring 4 L/min. Onset of shortness of breath suddenly 2 weeks ago[address] Seen by Dr. Wray (whirley operator); PFTs done but results not available. Saw Dr. Aponte (colon therapist); recent stress test and echo reported normal per patient. CXR: Pulmonary congestion. proBNP elevated. Echocardiogram showed: Overall LVEF is 55-60%. Trivial circumferential pericardial effusion without hemodynamic compromise. Plan: Monitor respiratory status. IV Lasix 20 mg daily + strict I/O + low Na diet. Continue aldactone 12.5 mg 5. Type 2 NSTEMI Troponin trend: 1575, 17 10, 1451 EKG: LAFB, prolonged QTc (0.53), no ST-elevation. Likely demand ischemia from sepsis/hypoxia/anemia. Plan: Continue telemetry. ASA not given due to possible GI bleed. No anticoagulation at present (HAS-BLED > 5). Dr. Alvarez (cardiology) recommends SQ heparin TID; hold heparin drip for now, Trend troponin tomorrow and if it continues to rise and hemoglobin is stable consider starting heparin drip, reconsult Cardiology Dr. Aponte (patient follows outpatient) 6. Normocytic Anemia (Hgb 8.9, Ferritin 27, TIBC low) Iron panel: Consistent with mixed iron deficiency + anemia of chronic disease. No overt GI bleed, but UGIB cannot be ruled out. FOBT pending Plan: Protonix 80 mg x1, then 40 mg IV BID. GI consult placed (Dr. Mireles); plan for EGD tomorrow Monitor H/H Q6H. PRBC transfusion if Hgb <7 or symptomatic. NPO after midnight 7. Hypokalemia Potassium 2.6 today (was 2.5 yesterday). Plan: IV KCl replacement per protocol. Monitor BMP Q12H. Magnesium 1.8, maintain >2 8. LYNDSEY on CKD Creatinine stable at 1.07 (baseline 0.6). Likely cardiorenal syndrome / volume depletion / hepatorenal component. Plan: Avoid nephrotoxins. Daily BMP, monitor fluid status. IV Lasix continued with close I/O monitoring. 9. Chronic Pancreatitis with CBD Dilation CT Abdomen (2023 and current): Chronic pancreatitis with CBD dilation 13 mm, pancreatic duct 6 mm. No current epigastric tenderness. Lipase 18 Plan: Monitor symptoms and LFTs. Outpatient follow up 10. Chronic Back Pain History of spine surgery, ineffective epidural injection. MS Contin at home not appropriate in cirrhosis. Plan: Pain management: hydromorphone PRN. Avoid gabapentin and morphine due to hepatic clearance. 11. Malnutrition / Vitamin Deficiency Physical signs: Muscle wasting, glossitis, telangiectasias, spider nevi. Plan: Multivitamins + thiamine + folate supplementation. Renal diet with protein repletion. Consider nutrition consult. 12. ALBERTO Uses CPAP at night. Continue inpatient if brought from home. 13. Osteoporosis Taking Fosamax at home 14. Hyponatremia Hypervolemic hyponatremia Improving 130 today Follow up on urine lytes and urine osmolality Continue IV Lasix 20 mg once daily, monitor sodium Code Status: DNR Line/tube: PIV DVT prophylaxis: Heparin SQ Nutrition: Renal PT: Yes Mirian Mcdaniels MD Internal Medicine Resident, PGY-2 Date of Service: Mar 17, 2025 Billing Provider: JOAQUIM ELDER MD,MIRIAN, RES Mar 17, 2025 16:11
[2025-03-17] MEDS: potassium Cl 20 mEq SR tablet PO PRN (18:54)
[2025-03-18] VITALS (17 sets, daily range): BP systolic 99–149; BP diastolic 37–88; PULSE 62–87; RESP 7–20; TEMP 97.6–98.3; O2SAT 91–98
[2025-03-18] MEDS: lactulose 20gm/30ml cup PO SCH
[2025-03-18 06:10] LABS: MEAN PLATELET VOLUME 7.2 FL (7.4-10.4); RED CELL DISTRIBUTION WIDTH 29.8 % (11.5-14.5)
[2025-03-18 06:23] LABS: INR 1.8 INR
[2025-03-18 06:28] LABS: CREATININE 1.03 MG/DL (0.40-0.90); TOTAL CARBON DIOXIDE 38.1 MMOL/L (24-32); eCRCL 46 ML/MIN; eGFR 53 ML/MIN
[2025-03-18 06:31] LABS: PHOSPHORUS 2.5 MG/DL (2.3-4.5)
[2025-03-18 07:15] LABS: PLATELET ESTIMATE NORMAL
[2025-03-18 07:17] LABS: ELLIPTOCYTES FEW
--- NOTE | 2025-03-18 16:21 | PROGRESS NOTE- Residence ---
Progress Note - Resident Providers to CC Resident Creating Document: SINDHU CHANG, RES ~ Antibiotic Timeout Antibiotic Ordered?: Yes Subjective The patient was seen and examined at bedside today. She had just undergone EGD which showed portal hypertensive gastropathy. She complains of mild epigastric and right upper quadrant pain. Dr. Aponte consulted, awaiting recommendations. Substance abuse navigator consulted. She reported that she has sleep apnea and that she uses CPAP at home. She has a history of smoking but does not use any inhalers at home. Objective Vital Signs Date Time Temp Pulse Resp B/P (MAP) Pulse Ox O2 Delivery O2 Flow Rate FiO2 03/18/25 14:36 85 03/18/25 10:30 18 122/59 (80) 97 Nasal Cannula 3.0 03/18/25 09:56 97.0 03/18/25 02:37 28 Result Diagram: 03/18/25 0544 03/18/25 0544 Elderly female, drowsy, not in acute distress, on 3 L of oxygen through nasal cannula Head: Normocephalic with an atraumatic Eyes: Pupils- 3mm, reacting to light, conjunctiva- anicteric Nose and throat: No polyps, septum- normal, no mucosal ulcers Neck: Supple, no lymphadenopathy, no carotid bruit Respiratory: No use of accessory muscles of respiration, Bilateral normal vesicular breath sounds heard. No wheeze, rhochi or creps Chest: Spider angiomas multiple on chest Cardiac: S1-S2 heard, rhythm regular, no gallop/murmur Abdomen: non distended, mild right upper quadrant and epigastric tenderness, no organomegaly, bowel sounds - heard Extremities: no clubbing, 1+ pedal edema, no deformities, peripheral pulses - 2+ Skin: warm and dry, no rash, no purpura Neuro: No focal deficit, gross cranial nerve exam - normal Coagulation Studies Laboratory Tests Test 03/18/25 05:44 Prothrombin Time 17.6 SECONDS (9.0-12.0) H INR International Normalized Ratio 1.8 INR Coagulation Comments Assessment Assessment A 69-year-old female with PMH of chronic liver disease diagnosed three months ago, undergoing evaluation for chronic hypoxemic respiratory failure, chronic pancreatitis, ALBERTO presented to the ED with chief complaints of falls and was encephalopathic on admission. Plan Plan 1. Mechanical Falls x3 (03/16/25) Likely secondary to hepatic encephalopathy Three falls on the day of admission while trying to get out of bed and use the commode. No LOC, but she hit her head and knees. Likely multifactorial: hepatic encephalopathy (grade 2), weakness from malnutrition and diuresis, possible orthostasis CT head: negative for acute bleed; repeat only if mentation worsens (alcohol use, can increase SDH risk). Fall precautions, PT/OT evaluation. 2. Acute Hepatic Encephalopathy (Grade 2), resolving Ammonia resolved. Now alert and oriented, answering all questions appropriately. Continue Lactulose 20g q6h (titrate to 34 BMs/day). Rifaximin 550 mg BID. Hold gabapentin and MS Contin Pain management with hydromorphone. 3. Decompensated Alcoholic Cirrhosis with Portal Hypertension Alcohol use disorder MELD-Na 27, Child-White Class C Hyperbilirubinemia (T bili 6.1), AST 61, ALP 140. INR 1.8, PT 17.2. Monitor CMP, INR daily. Hepatitis B & C serologies pending. Continue alcohol cessation counseling. Consider paracentesis if ascites worsens (currently small-volume). 4. Acute on Chronic Hypoxemic Respiratory Failure, improving Likely secondary to underlying COPD vs fluid overload Oxygen requirement back to baseline. Onset of shortness of breath suddenly 2 weeks ago. Seen by Dr. Wray (director of quality control); PFTs done but results not available. Saw Dr. Aponte (mailroom messenger); recent stress test and echo reported normal per patient. CXR: Pulmonary congestion. proBNP elevated. Echocardiogram showed: Overall LVEF is 55-60%. Trivial circumferential pericardial effusion without hemodynamic compromise. IV Lasix 20 mg daily + strict I/O + low Na diet. Continue aldactone 12.[address] vs NSTEMI Patient's mailroom messenger, Dr. Aponte consulted. Awaiting recommendations. Troponin trend: 1575, 1710, 1451 EKG: LAFB, prolonged QTc (0.53), no ST-elevation. Likely demand ischemia from sepsis/hypoxia/anemia. Continue telemetry. No anticoagulation at present (HAS-BLED > 5). Currently on subcutaneous heparin t.i.d. as per Dr. Alvarez's recommendations. 6. Normocytic Anemia (Hgb 9.3, Ferritin 27, TIBC low) EGD done today by Dr. Mireles showed portal hypertensive gastropathy. Continue Protonix 40 mg b.i.d. Iron panel: Consistent with mixed iron deficiency + anemia of chronic disease. PRBC transfusion if Hgb <7 or symptomatic. 7. Hypokalemia, resolved Continue potassium replacement protocol. 8. LYNDSEY on CKD likely secondary to vasomotor nephropathy Creatinine stable at 1.03 (baseline 0.6). Avoid nephrotoxins. Daily BMP, monitor fluid status. IV Lasix continued with close I/O monitoring. 9. Chronic Pancreatitis with CBD Dilation CT Abdomen (2023 and current): Chronic pancreatitis with CBD dilation 13 mm, pancreatic duct 6 mm. No current epigastric tenderness. Lipase 18 Monitor symptoms and LFTs. Outpatient follow up 10. Chronic Back Pain History of spine surgery, ineffective epidural injection. MS Contin at home not appropriate in cirrhosis. Hydromorphone PRN. Avoid gabapentin and morphine due to hepatic clearance. 11. Malnutrition / Vitamin Deficiency Physical signs: Muscle wasting, glossitis, telangiectasias, spider nevi. Multivitamins + thiamine + folate supplementation. Renal diet with protein repletion. Consider nutrition consult. 12. ALBERTO Continue CPAP. 13. Osteoporosis Taking Fosamax at home 14. Hyponatremia Likely hypotonic hyponatremia secondary to cirrhosis. Improving 130 today Follow up on urine lytes and urine osmolality Continue IV Lasix 20 mg once daily, monitor sodium 15 Metabolic Alkalosis Likely contraction alkalosis secondary to ongoing diuretic use (Lasix) and associated hypokalemia. Serum bicarbonate (CO2) elevated to 38.1. Replete potassium aggressively (target >3.5). Monitor magnesium and correct if low. Hold or reduce diuretic dose if bicarbonate continued increases Monitor ABG if any worsening of respiratory/ mental status. Code Status: DNR Line/tube: PIV DVT prophylaxis: Heparin SQ Nutrition: Renal PT: Home with barriers Disposition: Management as per Dr. Aponte's recommendations. Possible discharge tomorrow if hemoglobin stays stable. Sindhu Chang MD Internal Medicine Resident, PGY-2 Date of Service: Mar 18, 2025 Billing Provider: JOAQUIM ELDER MD,SINDHU BOURGEOIS, RES Mar 18, 2025 16:21
--- NOTE | 2025-03-18 16:36 | CONSULTATION REPORT ---
History of Present Illness Providers to CC CC: WILLIAM APONTE MD ~ Reason for Admit\Admit Dx: Cardiology consultation Refering MD: [place] [facility] [place]. Aponte Cardiology, Dr. Crespo, Pulmonology History of Present Illness This is a 69-year-old female who has history of hyperlipidemia, COPD, sleep apnea on CPAP, anemia, recent diagnosis of liver disease and chronic pancreatitis. She was being seen for localized edema mostly to her right lower extremity in the clinic. Underwent a echocardiogram that demonstrated preserved LVEF with diastolic dysfunction. PET stress test November 20, 2024 was normal. Right lower extremity edema. Venous ultrasound was performed without DVT. Presented through the emergency department secondary to falls occurring on March 16. She was trying to get out of bed and fell multiple times. She hit her head. She complains of some dizziness. Complains of abdominal pain for the past six months. 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 Shortness for breath is at baseline. Denies chest pain or pressure. Continued right lower extremity edema. Patient did undergo a EGD which showed portal hypertensive gastritis. Allergies: Coded Allergies: brexpiprazole (Verified Allergy, Unknown, 02/16/24) valbenazine (Verified Allergy, Unknown, 02/16/24) Home Medications Home Medications Active Reported Furosemide 80 Mg Tablet 1 Tab PO DAILY Ondansetron Odt (Ondansetron HCl) 4 Mg Tab.rapdis 1 Tab PO Q8H PRN Lidocaine 5 % Adh..patch 1-2 Patch TOP DAILY PRN Morphine Sulfate Er (Morphine Sulfate) 15 Mg Tablet.er 1 Tab PO TID Escitalopram Oxalate 10 Mg Tablet 15 Mg PO DAILY Gabapentin 400 Mg Capsule 1 Cap PO TID Past Medical History Medical History Comment Hyperlipidemia COPD Sleep apnea Anemia with recent bone marrow biopsy results pending New diagnosis of liver disease and chronic pancreatitis Chronic back pain on morphine Osteoporosis Past Surgical History Surgical History Comment Valve resection Back surgery Past Social History Social History Comment Drinks 2-4 oz of alcohol daily. History of smoking. Quit many years ago. Lives with . No recreational drugs. 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 Physical Exam Last Vital Signs Recorded: RN Vital Signs have been reviewed: Yes, Temperature: 97.6, Source: Temporal, Heart Rate: 85, Respiratory Rate: 18, BP: 122/59, Pulse Oximetry: 97, Weight: 111.000 Physical Exam General: Awake, alert, oriented. No apparent distress. Closing her eyes and falling asleep during exam but awakens easily. Neck: Supple. Normal range of motion. No JVD Respiratory: Lungs are clear to auscultation bilaterally. No respiratory distress. Chest: Normal shape and size. No accessory muscle use. Cardiovascular: Regular rate and rhythm. S1-S2. No murmur, gallop, rub. Gastrointestinal: Abdomen is soft. Nontender to palpation. Bowel sounds present. Extremities: Trace right lower extremity edema. None on the left. No cyanosis or clubbing. Neurologic: Alert and oriented x4. Nonfocal Psychiatric: Normal mood and affect. Skin: Normal color. Warm and dry. Review of Systems ROS Shortness for breath and dyspnea on exertion which are at baseline. Abnormal district scout executive strength as noted in HPI. No chest pain or pressure. Some dizziness. None currently is getting up to the bathroom without difficulty. Was asked, but otherwise denies review of systems. Results EKG EKG Sinus rhythm. No acute ST changes. Telemetry reviewed. She has maintained sinus rhythm. Intermittently tachycardic when she gets up. Echocardiogram Echocardiogram Conclusion Overall LVEF is 55-60%. Dilated LV size and wall thickness. Overall systolic function is normal. RV appears mildly dilated with normal systolic function. RVSP is estimated at 47 mmHg. Trileaflet AV appears mildly sclerotic without stenosis or insufficiency. Mild MV annular calcification without stenosis. Trace regurgitation. TV appears structurally normal with trace regurgitation. Normal PV without stenosis, physiologic insufficiency. Trivial circumferential pericardial effusion without hemodynamic compromise. Dictated by:ADRIANA EMANUEL MD Dictation date and time:03/17/25 1433 Diagram Lab Result Diagram: 03/18/25 0544 03/18/25 0544 Assessment/Plan Additional Plan This is a 69-year-old female who presented secondary to multiple falls. The following is her problem list: Multiple falls Does not remember the events. Questionable syncope. --recommend orthostatic vital signs Q shift. --monitor on telemetry. Outpatient event monitor. --multiple falls may also be secondary to hepatic encephalopathy has below. Elevated troponins/PR II No chest pain. Echocardiogram with no wall motion abnormalities --recommend medical management --aspirin 81 mg daily --statin is currently on hold given abnormal LFTs. --start beta-cale Hepatic encephalopathy Initial ammonia 63. Started on lactulose and rifaximin. --management per hospitalist Anemia --EGD without acute hemorrhage --underwent bone marrow biopsy with results pending. Hyponatremia, question of hypervolemic hyponatremia however patient's lungs are clear on exam and she has mild lower extremity edema. --monitoring. Obstructive sleep apnea --CPAP at night and/or while asleep COPD --followed by Dr. crespo. On home oxygen. Alcohol use disorder --encouraged to quit --on withdrawal protocol per hospitalist. Thiamine, folic acid Case discussed with Dr. Hair Aponte. In agreement with medical management as above. Supervising MD Supervising Physician: ZEESHAN Zuñiga NP Mar 18, 2025 16:36
[2025-03-18] MEDS: metoprolol tartrate 12.5mg (1/2 tablet) PO SCH (20:00)
[2025-03-18] MEDS: pantoprazole 40mg Tablet.DR PO SCH (20:21)
[2025-03-18] MEDS: HALLS - SOOTHE MENTHOL 1.8 MG cough drop LOZENGE MM PRN (21:57)
[2025-03-19] VITALS (9 sets, daily range): BP systolic 95–150; BP diastolic 40–76; PULSE 62–100; RESP 10–18; TEMP 97–98.2; O2SAT 85–98
[2025-03-19 06:30] LABS: MEAN PLATELET VOLUME 7.3 FL (7.4-10.4); RED CELL DISTRIBUTION WIDTH 29.8 % (11.5-14.5)
[2025-03-19 06:48] LABS: INR 1.8 INR
[2025-03-19 07:00] LABS: CREATININE 1.13 MG/DL (0.40-0.90); TOTAL CARBON DIOXIDE 36.1 MMOL/L (24-32); eCRCL 42 ML/MIN; eGFR 48 ML/MIN
[2025-03-19 07:08] LABS: PHOSPHORUS 2.7 MG/DL (2.3-4.5)
[2025-03-19 07:38] LABS: EOSINOPHILS % (MANUAL) 3.0 % (0-6); LYMPHOCYTES % (MANUAL) 12.0 % (21-51); MONOCYTES % (MANUAL) 13.0 % (2-12); NEUTROPHILS % (MANUAL) 72.0 % (42-75); PLATELET ESTIMATE NORMAL
[2025-03-19 08:12] LABS: HBSAG SCREEN Negative (Negative); HEPATITIS C VIRUS ANTIBODY Non Reactive (Non Reactive)
--- NOTE | 2025-03-19 11:05 | PROGRESS NOTE ---
Progress Note Cardiology Providers to CC ~ Subjective Subjective Patient is having increased shaking. She is alert and oriented. No chest pain or pressure. Shortness for breath at baseline on 3 L nasal cannula. Objective Result Diagram: 03/19/25 0542 03/19/25 0542 Objective General: Awake, alert, oriented. Shaking noted. Neck: Supple. Normal range of motion. No JVD Respiratory: Lungs are clear to auscultation bilaterally. No respiratory distress. Chest: Normal shape and size. No accessory muscle use. Cardiovascular: Regular rate and rhythm. S1-S2. No murmur, gallop, rub. Extremities: + edema. No cyanosis or clubbing. Neurologic: Alert and oriented x4. Nonfocal Skin: Normal color. Warm and dry. Coagulation Studies Laboratory Tests Test 03/19/25 05:42 Prothrombin Time 17.2 SECONDS (9.0-12.0) H INR International Normalized Ratio 1.8 INR Coagulation Comments Problem\Assessment\Plan Additional Plan This is a 69-year-old female who presented secondary to multiple falls. The following is her problem list: Multiple falls Does not remember the events. Questionable syncope. --recommend orthostatic vital signs Q shift. --monitor on telemetry. Outpatient event monitor. --multiple falls may also be secondary to hepatic encephalopathy has below. Elevated troponins/MD II No chest pain. Echocardiogram with no wall motion abnormalities --recommend medical management --aspirin 81 mg daily --statin is currently on hold given abnormal LFTs. Recommend starting statin when stable from a GI perspective. Goal LDL less than 55 --start metoprolol tartrate 12.5 mg b.i.d. --start Plavix 75 mg daily Hepatic encephalopathy Initial ammonia 63. Started on lactulose and rifaximin. --management per hospitalist Anemia --EGD without acute hemorrhage --underwent bone marrow biopsy with results pending. Hyponatremia, question of hypervolemic hyponatremia however patient's lungs are clear on exam and she has mild lower extremity edema. --monitoring. Obstructive sleep apnea --CPAP at night and/or while asleep COPD --followed by Dr. crespo. On home oxygen. Alcohol use disorder --encouraged to quit --on withdrawal protocol per hospitalist. Thiamine, folic acid Case discussed with Dr. Hair Aponte. In agreement with medical management as above. Cardiology condition is stable at this time. We will sign off. Please do not hesitate to recontact us if any change in patient condition. Supervising Physician: ZEESHAN Zuñiga NP Mar 19, 2025 11:05
--- NOTE | 2025-03-19 17:53 | PROGRESS NOTE- Residence ---
Progress Note - Resident Providers to CC Resident Creating Document: MIRIAN RONQUILLO RES ~ Antibiotic Timeout Antibiotic Ordered?: Yes Subjective The patient was seen and examined at bedside today. No acute overnight symptoms, hemoglobin stable Objective Vital Signs Date Time Temp Pulse Resp B/P (MAP) Pulse Ox O2 Delivery O2 Flow Rate FiO2 03/19/25 15:31 16 03/19/25 15:00 97.3 78 100/45 (63) 98 Nasal Cannula 2.0 03/19/25 08:00 28 Result Diagram: 03/19/25 0542 03/19/25 0542 General: Elderly female, alert and oriented x4, overweight, not exhibiting any apparent distress Head: Normal shape and size, no trauma Eyes: Pupils- 3mm, responsive to light, conjunctiva- yellowish Nose and throat: No nasal polyps, septum- normal, no mucosal ulcers Chest: Multiple small dilated blood vessels, spider nevi visible across the chest Neck: Flexible, no swollen lymph nodes, no carotid bruits Respiratory: No use of accessory muscles for breathing, bilateral normal breath sounds present. No wheezing, rhonchi, or crackles Cardiac: S1-S2 audible, rhythm regular, no gallops or murmurs Abdomen: Overweight, distended, no fluid thrill noted, mild epigastric tenderness, no enlarged organs, bowel sounds audible Extremities: No signs of clubbing, 2+ pitting edema in feet, no deformities, peripheral pulses- 2+ Skin: Warm and dry, no rashes, bruises noted on both knees Neuro: No flapping tremors today, no focal neurological deficits present Coagulation Studies Laboratory Tests Test 03/19/25 05:42 Prothrombin Time 17.2 SECONDS (9.0-12.0) H INR International Normalized Ratio 1.8 INR Coagulation Comments Assessment Assessment A 69-year-old female with PMH of chronic liver disease diagnosed three months ago, undergoing evaluation for chronic hypoxemic respiratory failure, chronic pancreatitis, ALBERTO presented to the ED with chief complaints of falls and was encephalopathic on admission. Plan Plan Acute Hepatic Encephalopathy (Grade 2) Resolved Decompensated Alcoholic Cirrhosis with Portal Hypertension Alcohol use disorder MELD-Na 27, Child-White Class C EGD showed normal esophagus, portal hypertensive gastropathy which was biopsied and normal duodenal pelvis 2nd portion of the duodenum Recommendations: Continue regular diet, await pathology results and continue pantoprazole 40 mg p.o. b.i.d. Hyperbilirubinemia (T bili 6.1), AST 61, ALP 140. INR 1.8, PT 17.2. Monitor CMP, INR daily. Hepatitis B & C serologies negative Continue alcohol cessation counseling. Normocytic Anemia (Hgb 9.3, Ferritin 27, TIBC low) Hemoglobin stable at 8.9 today Continue Protonix 40 mg b.i.d. Iron panel: Consistent with mixed iron deficiency + anemia of chronic disease. PRBC transfusion if Hgb <7 or symptomatic. Chronic Pancreatitis with CBD Dilation CT Abdomen (2023 and current): Chronic pancreatitis with CBD dilation 13 mm, pancreatic duct 6 mm. No current epigastric tenderness. Lipase 18 Monitor symptoms and LFTs. Outpatient follow up Acute on Chronic Hypoxemic Respiratory Failure, improving Likely secondary to underlying COPD vs fluid overload LYNDSEY on CKD likely secondary to vasomotor nephropathy Chronic Back Pain Malnutrition / Vitamin Deficiency ALBERTO Osteoporosis Code Status: DNR GI team signing off, please reconsult if any acute changes or emergent concerns Mirian Ronquillo MD Internal Medicine Resident, PGY-2 Date of Service: Mar 19, 2025 Billing Provider: CRISTIANA BOURNE MD, GAURAV, RES Mar 19, 2025 17:53
--- NOTE | 2025-03-19 18:26 | PROGRESS NOTE- Residence ---
Progress Note - Resident Providers to CC Resident Creating Document: SINDHU CHANG CHRISTELLE, RES ~ Antibiotic Timeout Antibiotic Ordered?: Yes Subjective The patient was seen and examined at bedside today. No new complaints. Started sending referrals to local SNFs for rehab placement. Objective Vital Signs Date Time Temp Pulse Resp B/P (MAP) Pulse Ox O2 Delivery O2 Flow Rate FiO2 03/19/25 15:31 16 03/19/25 15:00 97.3 78 100/45 (63) 98 Nasal Cannula 2.0 03/19/25 08:00 28 Result Diagram: 03/19/25 0542 03/19/25 0542 Elderly female, drowsy, not in acute distress, on 2 L of oxygen through nasal cannula Head: Normocephalic with an atraumatic Eyes: Pupils- 3mm, reacting to light, conjunctiva- anicteric Nose and throat: No polyps, septum- normal, no mucosal ulcers Neck: Supple, no lymphadenopathy, no carotid bruit Respiratory: No use of accessory muscles of respiration, Bilateral normal vesicular breath sounds heard. No wheeze, rhochi or creps Chest: Multiple spider angiomas on chest Cardiac: S1-S2 heard, rhythm regular, no gallop/murmur Abdomen: non distended, no tenderness, no organomegaly, bowel sounds - heard Extremities: no clubbing, 1+ pedal edema, no deformities, peripheral pulses - 2+ Skin: warm and dry, no rash, no purpura Neuro: No focal deficit, gross cranial nerve exam - normal Coagulation Studies Laboratory Tests Test 03/19/25 05:42 Prothrombin Time 17.2 SECONDS (9.0-12.0) H INR International Normalized Ratio 1.8 INR Coagulation Comments Assessment Assessment A 69-year-old female with PMH of chronic liver disease diagnosed three months ago, undergoing evaluation for chronic hypoxemic respiratory failure, chronic pancreatitis, ALBERTO presented to the ED with chief complaints of falls and was encephalopathic on admission. Plan Plan 1. Mechanical Falls x3 (03/16/25) Acute hepatic encephalopathy, resolving Outpatient event monitor by Dr. Aponte. Ammonia normalised. Patient having 3-5 bowel movements per day. Continue lactulose 20 mg Q8H. Rifaximin 550 mg BID. Hold gabapentin and MS Contin CT head: negative for acute bleed; repeat only if mentation worsens (alcohol use, can increase SDH risk). Fall precautions, PT/OT evaluation. Pain management with hydromorphone. 3. Decompensated Alcoholic Cirrhosis with Portal Hypertension Alcohol use disorder MELD-Na 27, Child-White Class C Hyperbilirubinemia (T bili 5.7), AST 61, ALP 140. INR 1.8, PT 17.2. Monitor CMP, INR daily. Hepatitis B & C serologies negative. Continue alcohol cessation counseling. 4. Acute on Chronic Hypoxemic Respiratory Failure, improving Likely secondary to underlying COPD vs fluid overload Oxygen requirement back to baseline. Onset of shortness of breath suddenly 2 weeks ago. Seen by Dr. Wray (watch parts inspector); PFTs done but results not available. Saw Dr. Aponte (social media analyst); recent stress test and echo reported normal per patient. CXR: Pulmonary congestion. proBNP elevated. Echocardiogram showed: Overall LVEF is 55-60%. Trivial circumferential pericardial effusion without hemodynamic compromise. IV Lasix 20 mg daily + strict I/O + low Na diet. Continue aldactone 12.5 mg. 5. Type 2 [facility] Patient's social media analyst, Dr. Aponte consulted. Continue medical management with aspirin, Plavix and metoprolol. EKG: LAFB, prolonged QTc (0.53), no ST-elevation. Likely demand ischemia from sepsis/hypoxia/anemia. Continue telemetry. 6. Normocytic Anemia (Hgb 9.3, Ferritin 27, TIBC low) EGD done by Dr. Mireles showed portal hypertensive gastropathy. Continue Protonix 40 mg b.i.d. Iron panel: Consistent with mixed iron deficiency + anemia of chronic disease. PRBC transfusion if Hgb <7 or symptomatic. 7. Hypokalemia, resolved Continue potassium replacement protocol. Continue spironolactone. 8. LYNDSEY on CKD likely secondary to vasomotor nephropathy Creatinine 1.13 (baseline 0.6). Avoid nephrotoxins. Daily BMP, monitor fluid status. IV Lasix continued with close I/O monitoring. 9. Chronic Pancreatitis with CBD Dilation CT Abdomen (2023 and current): Chronic pancreatitis with CBD dilation 13 mm, pancreatic duct 6 mm. No current epigastric tenderness. Lipase 18 Monitor symptoms and LFTs. Outpatient follow up 10. Chronic Back Pain History of spine surgery, ineffective epidural injection. MS Contin at home not appropriate in cirrhosis. Hydromorphone PRN. Avoid gabapentin and morphine due to hepatic clearance. 11. Malnutrition / Vitamin Deficiency Physical signs: Muscle wasting, glossitis, telangiectasias, spider nevi. Multivitamins + thiamine + folate supplementation. Renal diet with protein repletion. Consider nutrition consult. 12. ALBERTO Continue CPAP. 13. Osteoporosis Taking Fosamax at home 14. Hyponatremia Likely hypotonic hyponatremia secondary to cirrhosis. Improving 132 today Follow up on urine lytes and urine osmolality Continue IV Lasix 20 mg once daily, monitor sodium 15 Metabolic Alkalosis Likely contraction alkalosis secondary to ongoing diuretic use (Lasix) and associated hypokalemia. Serum bicarbonate (CO2) elevated to 36. Replete potassium aggressively (target >3.5). Monitor magnesium and correct if low. Hold or reduce diuretic dose if bicarbonate continued increases Monitor ABG if any worsening of respiratory/ mental status. Code Status: DNR Line/tube: PIV DVT prophylaxis: Heparin SQ Nutrition: Renal PT: Post-acute care Disposition: Continue care in PCU. Possible placement to rehab tomorrow. Sindhu Chang MD Internal Medicine Resident, PGY-2 Date of Service: Mar 19, 2025 Billing Provider: JOAQUIM ELDER MD,SINDHU BOURGEOIS, RES Mar 19, 2025 18:26
[2025-03-20] VITALS (8 sets, daily range): BP systolic 95–210; BP diastolic 43–66; PULSE 67–81; RESP 11–20; TEMP 97.1–97.7; O2SAT 94–98
[2025-03-20 06:01] LABS: MEAN PLATELET VOLUME 7.1 FL (7.4-10.4); RED CELL DISTRIBUTION WIDTH 29.3 % (11.5-14.5)
[2025-03-20 06:03] LABS: INR 1.7 INR
[2025-03-20 06:18] LABS: CREATININE 1.24 MG/DL (0.40-0.90); TOTAL CARBON DIOXIDE 39.1 MMOL/L (24-32); eCRCL 39 ML/MIN; eGFR 43 ML/MIN
[2025-03-20 06:32] LABS: PHOSPHORUS 3.1 MG/DL (2.3-4.5)
[2025-03-20 06:50] LABS: BASOPHILS % (MANUAL) 1.0 % (0-1); EOSINOPHILS % (MANUAL) 6.0 % (0-6); LYMPHOCYTES % (MANUAL) 28.0 % (21-51); MONOCYTES % (MANUAL) 14.0 % (2-12); NEUTROPHILS % (MANUAL) 51.0 % (42-75); PLATELET ESTIMATE NORMAL
[2025-03-20] MEDS ORDERED: potassium Cl 40MEQ/1/2NS 520ml 520 ML IV PRN (06:55)
[2025-03-20] MEDS ORDERED: potassium Cl 20 mEq SR tablet PO PRN (06:55)
[2025-03-20] MEDS: K and/or MAG REPLACEMENT MC SCH (08:23)
[2025-03-20] MEDS: potassium Cl 20 mEq SR tablet PO PRN (08:29)
--- NOTE | 2025-03-20 09:50 | PATHOLOGY REPORT ---
[facility] [address] [place] [address] SURGICAL PATHOLOGY REPORT CaseNumber: [id number] Surgeon:Chico Britton M.D. CLINICAL INFORMATION CLINICAL INFORMATION: Melena, history of liver cirrhosis, evaluate for gastroesophageal varices/ port al hypertensive gastropathy. DIAGNOSIS DIAGNOSIS: GASTRIC ANTRUM, BIOPSY - NO SIGNIFICANT INFLAMMATION, EDEMA, OR VASCULAR CONGESTION - NO INTESTINAL METAPLASIA - NO DYSPLASIA OR MALIGNANCY MICROSCOPIC DESCRIPTION MICROSCOPIC DESCRIPTION: Reviewed is a single H&E-stained slide showing serial sections and levels of a single fragment of gastric antral-type mucosa. There is no significant inflammation, edema, or vas cular congestion. There is no intestinal metaplasia. There are no dysplastic or neoplastic features. GROSS DESCRIPTION GROSS DESCRIPTION: Received in a container of formalin labeled with the patient's name, number, and " " . The specimen is entirely submitted as . The time at which the specimen was removed was . The time at which the specimen was placed in formalin was . Electronically signed by: Arik Ace M.D. 03/20/2025 9:16:00 AM
[2025-03-20] MEDS: acetaZOLAMIDE IV 500mg inj IV ONE (10:43)
--- NOTE | 2025-03-20 22:54 | DISCHARGE SUMMARY-Residence ---
Discharge Summary Providers to Resident Creating Document: JERYONATHAN GARCIA CHRISTELLE, RES ~ Discharge Summary Admission Diagnosis: ALCOHOLIC HEPATITIS Hospital Course DATE OF ADMISSION: DATE OF DISCHARGE: Discharge Summary: Laboratory Tests Test 03/19/25 05:42 03/20/25 05:22 White Blood Count 8.6 X10'3 8.0 X10'3 Red Blood Count 3.04 X10'6 3.12 X10'6 Hemoglobin 8.9 g/dl 9.0 g/dl Hematocrit 26.8 % 27.3 % Mean Corpuscular Volume 88.0 FL 87.4 FL Mean Corpuscular Hemoglobin 29.2 PG 28.9 PG Mean Corpuscular Hemoglobin Concent 33.1 g/dL 33.0 g/dL Red Cell Distribution Width 29.8 % 29.3 % Platelet Count 199 X10'3 221 X10'3 Mean Platelet Volume 7.3 FL 7.1 FL Neutrophils (%) (Auto) 58.7 % 46.0 % Lymphocytes (%) (Auto) 17.8 % 32.6 % Monocytes (%) (Auto) 18.3 % 15.5 % Eosinophils (%) (Auto) 4.0 % 4.1 % Basophils (%) (Auto) 1.2 % 1.8 % Neutrophils # (Auto) 5.0 X10'3 3.7 X10'3 Lymphocytes # (Auto) 1.5 X10'3 2.6 X10'3 Monocytes # (Auto) 1.6 X10'3 1.2 X10'3 Eosinophils # (Auto) 0.3 X10'3 0.3 X10'3 Basophils # (Auto) 0.1 X10'3 0.1 X10'3 CBC Comment Differential Total Cells Counted 100 100 Neutrophils % (Manual) 72.0 % 51.0 % Lymphocytes % (Manual) 12.0 % 28.0 % Monocytes % (Manual) 13.0 % 14.0 % Eosinophils % (Manual) 3.0 % 6.0 % Platelet Estimate Normal Normal Red Blood Cell Morphology Perf Perf Polychromasia 1+ 1+ Hypochromasia 2+ 2+ Basophilic Stippling Anisocytosis 3+ 3+ Target Cells 2+ 2+ Prothrombin Time 17.2 SECONDS 16.8 SECONDS INR International Normalized Ratio 1.8 INR 1.7 INR Coagulation Comments Sodium Level 132 MMOL/L 133 MMOL/L Potassium Level 3.6 MMOL/L 3.1 MMOL/L Chloride Level 93 MMOL/L 94 MMOL/L Carbon Dioxide Level 36.1 MMOL/L 39.1 MMOL/L Anion Gap 3 0 Blood Urea Nitrogen 5 MG/DL 5 MG/DL Creatinine 1.13 MG/DL 1.24 MG/DL Estimated GFR/1.73 m2 48 ML/MIN 43 ML/MIN BUN/Creatinine Ratio 4.4 4.0 Glucose Level 125 MG/DL 105 MG/DL Calcium Level 8.5 MG/DL 8.8 MG/DL Phosphorus Level 2.7 MG/DL 3.1 MG/DL Magnesium Level 1.7 MG/DL 1.9 MG/DL Total Bilirubin 5.7 MG/DL 5.5 MG/DL Aspartate Amino Transf (AST/SGOT) 74 U/L 70 U/L Alanine Aminotransferase (ALT/SGPT) 17 U/L 16 U/L Alkaline Phosphatase 134 IU/L 135 IU/L Total Protein 7.5 G/DL 8.0 G/DL Albumin 2.2 G/DL 2.3 G/DL Globulin 5.3 G/DL 5.7 G/DL Albumin/Globulin Ratio 0.4 0.4 Chemistry Comments Basophils % (Manual) 1.0 % Date of Service: Mar 20, 2025 Billing Provider: JOAQUIM ELDER MD, SOWMYA MANJARI, RES Mar 20, 2025 22:54
== END 2025-03-20 17:53 | DRG 441 ==
LOC: ER 10:55 → ED HOLD 14:14 → EDBEDREQ 14:58 → PCU 3S 15:45
PROVIDERS: ADMIT Family Medicine; ATTEND Family Medicine
PROC: 5A09357 Assistance with Respiratory Ventilation, Less than 24 Consecutive Hours, Continuous Positive Airway Pressure (ICD-10-PCS; 2025-03-17)
PROC: 0DB78ZX Excision of Stomach, Pylorus, Via Natural or Artificial Opening Endoscopic, Diagnostic (ICD-10-PCS; 2025-03-18)
PROC: 0DB68ZX Excision of Stomach, Via Natural or Artificial Opening Endoscopic, Diagnostic (ICD-10-PCS; principal; 2025-03-18 09:27)
DX: K76.82 Hepatic encephalopathy (principal); I21.A1 Myocardial infarction type 2; K72.00 Acute and subacute hepatic failure without coma; J96.21 Acute and chronic respiratory failure with hypoxia; N17.0 Acute kidney failure with tubular necrosis; K92.1 Melena; K76.6 Portal hypertension; E87.1 Hypo-osmolality and hyponatremia; E87.3 Alkalosis; E46 Unspecified protein-calorie malnutrition; Z68.41 Body mass index [BMI] 40.0-44.9, adult; K70.10 Alcoholic hepatitis without ascites; F10.20 Alcohol dependence, uncomplicated; K72.10 Chronic hepatic failure without coma; G47.33 Obstructive sleep apnea (adult) (pediatric); E87.6 Hypokalemia; J44.9 Chronic obstructive pulmonary disease, unspecified; D64.9 Anemia, unspecified; E80.6 Other disorders of bilirubin metabolism; E78.5 Hyperlipidemia, unspecified; I50.9 Heart failure, unspecified; Z88.8 Allergy status to other drugs, medicaments and biological substances; Z87.891 Personal history of nicotine dependence
CPT/HCPCS: 36415; 43239; 70450; 71045; 74150; 76700; 80053; 80061; 80320; 80329; 82140; 82248; 82607; 82728; 83036; 83540; 83550; 83690; 83735; 83880; 83930; 84100; 84145; 84466; 84484; 85007; 85008; 85025; 85027; 85610; 86803; 86885; 86900; 86901; 87081; 87340; 87522; 93005; 93308; 94660; 94760; 96365; 96375; 97110; 97116; 97161; 97530; 99291; A4620; A6258; G0378; J0612; J1120; J1644; J1938; J2060; J2405; J2470; J3411; J3480; J3490; J7030; J7040

== ENCOUNTER 2025-03-27 15:18 | Inpatient (IN) | payer OTHER, MEDICARE ==
[~2025-03-27] VITALS: Ht 165.1 cm; Wt 94.0 kg
[~2025-03-27 15:18] MED LIST changes: +FURO80TA3 PO
[2025-03-27 15:41] LABS: ABG BASE EXCESS 2.0 mmol/L (-2.0-3.0); ABG HCO3 28.3 mmol/L (21.0-28.0); ABG OXYGEN SATURATION 99.0 % (94.0-98.0); ABG PCO2 (T) 52.4 mmHg (32.0-45.0); ABG PH (T) 7.350 (7.350-7.450); ABG PO2 (T) 140.4 mmHg (83.0-108.0); ALLEN'S TEST POSITIVE; FCOHb 0.8 % (0.5-1.5); FHHb 1.0 % (0.0-5.0); FIO2 100.0 mmHg/%; FMetHb 0.0 % (0.0-1.5); FO2Hb 98.2 % (94.0-98.0); MODE MASK - CPAP; PATIENT TEMPERATURE 37.0; RESPIRATORY RATE 14 b/min; TOTAL HEMOGLOBIN 11.0 G/dl (12.0-16.0)
--- NOTE | 2025-03-27 15:48 | ELECTROCARDIOGRAPH REPORT ---
[facility] Test Date: 2025-03-27 Test Time: 15:25:16 Pat Name: CADE SOUZA Department: EMERGENCY ROOM Room: Gender: F Deaf/Hard Of Hearing Specialist: : 1955 Requested By: FRANCHESKA LOVETT Order Number: [id number] Reading MD: Dr. Siva Roberts Measurements Intervals [place] Rate: 97 P: 59 [place]: 149 QRS: -60 QRSD: 101 T: 64 QT: 349 QTc: 444 Interpretive Statements Sinus rhythm Left anterior fascicular block Abnormal R-wave progression, late transition Electronically Signed On 03-27-2025 22:10:[address] Siva Roberts Please click the below link to view image of tracing.
[2025-03-27 15:57] VITALS: PULSE 102; RESP 21; O2SAT 99
--- NOTE | 2025-03-27 15:59 | Physician Documentation ---
History of Present Illness General Chief Complaint: Respiratory Distress Stated Complaint: RESP DISTRESS Time Seen by MD: 15:29 Primary Medical Doctor: Ramya VO at [facility] [place], Dr. Aponte Cardiology, Dr. Wray, Pulmonology History of Present Illness Initial Comments The patient is a 69-year-old female with a history of chronic liver disease diagnosed three months ago, undergoing evaluation for chronic hypoxemic respiratory failure, chronic pancreatitis, ALBERTO. She was admitted here recently and discharged to [facility]. She was apparently in chronic respiratory failure with decreased level of consciousness since this morning. Paramedics were summoned this afternoon and she was started on high-flow oxygen by mask and brought here. To her is present. 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 She has been evaluated by Dr. Wray who, according to the , has not established a diagnosis as of yet. He recommended that she see a production sanitizer, according to the patient's . She is on home oxygen. She was at [facility] and able to ambulate with a walker yesterday. Medication Reconciliation Allergies: Coded Allergies: brexpiprazole (Verified Allergy, Unknown, 02/16/24) valbenazine (Verified Allergy, Unknown, 02/16/24) Scheduled Escitalopram Oxalate (Escitalopram Oxalate), 15 MG PO DAILY, (Reported) Furosemide (Furosemide), 1 TAB PO DAILY, (Reported) Gabapentin (Gabapentin), 1 CAP PO TID, (Reported) Morphine Sulfate (Morphine Sulfate Er), 1 TAB PO TID, (Reported) Scheduled PRN Lidocaine (Lidocaine), 1-2 PATCH TOP DAILY PRN for pain, (Reported) ONDANSETRON ODT 4mg tablet (Ondansetron Odt), 1 TAB PO Q8H PRN for nausea/vomiting, (Reported) Past Medical History Past Medical History: Chronic Back Pain Past Surgical History: no surgical history Alcohol Use: Occasionally Drug Use: none Lives with: Family Lives In: Home Occupation: retired Review of Systems ROS Unable to obtain Physical Exam Physical Exam Vital Signs: Heart Rate: 98, Respiratory Rate: 18, BP: 120/86, Pulse Oximetry: 100, Weight: 94.000 Physical Exam Patient is essentially gasping and abdominal breathing. I have started BiPAP. ABG shows a PO2 of 140, pCO2 52, pH 7.35. Lungs are clear. No murmurs were auscultated. Progress Results/Orders Results/Orders Orders - FRANCHESKA LOVETT MD Abg (Arterial Blood Gas) (03/27/25 15:28) Chest,Single View (03/27/25 15:47) Monitor (03/27/25 15:47) Saline Lock (03/27/25 15:47) Oxygen (03/27/25 15:47) Cbc/Diff (03/27/25 15:47) BMP (03/27/25 15:47) PBNP (03/27/25 15:47) Hs Troponin I W Calculations (03/27/25 15:47) Hs Troponin I W Calculations (03/27/25 17:47) Hs Troponin I W Calculations (03/27/25 18:47) Bipap/Cpap (03/27/25 ) Completed Orders - FRANCHESKA LOVETT MD Chest,Single View (03/27/25 15:47) Electrocardiogram (03/27/25 15:47) Vital Signs 03/27/25 03/27/25 03/27/25 15:20 15:44 15:57 Pulse 98 100 102 Resp 18 21 21 B/P (MAP) 120/86 133/71 (91) Pulse Ox 100 100 99 O2 Flow Rate 15.0 FiO2 40 Laboratory Tests Test 03/27/25 15:36 03/27/25 15:56 Blood Gas Specimen Type Arterial Blood Gas Puncture Site Rr O2 Saturation 99.0 H Arterial Blood pH (Temp corrected) 7.350 Arterial Blood pCO2 (Temp correct) 52.4 H Arterial Blood pO2 (Temp corrected) 140.4 H Arterial Blood PO2/FiO2 Ratio 1.40 Arterial Blood HCO3 28.3 H Arterial Blood Base Excess 2.0 Arterial Blood Oxyhemoglobin 98.2 H Arterial Blood Carboxyhemoglobin 0.8 Arterial Blood Methemoglobin 0.0 Arterial Blood Deoxyhemoglobin 1.0 Rivera Test Positive Blood Gas Hemoglobin 11.0 L Blood Gas Temperature 37.0 Blood Gas Set Respiration Rate 14 Blood Gas Modality Mask - cpap FiO2 100.0 CBC Comment Chemistry Comments Medical Decision Making Findings This 69-year-old female with chronic hypoxic respiratory failure who has been worked up by pulmonology who have not been able to establish a diagnosis as of yet was able to walk with a walker yesterday and presents with a GCS of six today. She does not want to be intubated according to her who is at the bedside. Her blood gas does not explain her presentation. She is currently on BiPAP and our plant taxonomist has kindly agreed to admit her tonight. The patient's code status is do not resuscitate. This was made clear by the patient's . Departure Disposition: ADMITTED INPATIENT Admitted to Inpatient Unit: to plant taxonomist Admission Level of Care: Critcal Care Impression: Primary Impression: Respiratory failure Condition: Guarded Referrals: NO PRIMARY CARE PROVIDER (PCP) Critical Care Note Critical Care Note Due to the high probability of respiratory failure required my full attention for about 30 minutes while the patient was critical. I provided critical care services which included medication orders, frequent re-evaluations, response to treatment, renewing test results, and discussing case with various consultants. Unless specifically stated all procedures, tests, and medications were performed/interpreted under the direct supervision of the emergency department physician. Signature Scribe Signature: . Attestation: . FRANCHESKA LOVETT MD Mar 27, 2025 15:59
--- NOTE | 2025-03-27 16:17 | RADIOLOGY REPORT ---
CHEST RADIOGRAPH Indication: CP Technique: Single frontal view of the chest was obtained Comparison: DI CHEST,SINGLE VIEW on DOS: 03/16/25, DI CHEST,TWO VIEWS on DOS: 09/19/24 FINDINGS: Lines and Tubes: None Lungs: No focal consolidation. Bronchovascular crowding due to low lung volumes. Right mid lung zone linear densities. Pleura: No effusion. No pneumothorax. Cardiomediastinal contours: Mild cardiomegaly. Bones: No acute osseous abnormality. Cervical fixation hardware is noted. Partially visualized spinal stimulator wire terminating over the midline lower thorax. IMPRESSION: Right mid lung zone linear atelectasis. Otherwise, no evidence for acute cardiopulmonary disease.
[2025-03-27 16:18] LABS: MEAN PLATELET VOLUME 7.2 FL (7.4-10.4); RED CELL DISTRIBUTION WIDTH 26.3 % (11.5-14.5)
[2025-03-27 16:44] LABS: EOSINOPHILS % (MANUAL) 3.0 % (0-6); LYMPHOCYTES % (MANUAL) 18.0 % (21-51); MONOCYTES % (MANUAL) 10.0 % (2-12); NEUTROPHILS % (MANUAL) 69.0 % (42-75)
[2025-03-27 16:45] LABS: PLATELET ESTIMATE NORMAL
[2025-03-27 16:57] LABS: CREATININE 1.10 MG/DL (0.40-0.90); PRO BRAIN NATRIURETIC PEPTIDE 1529 PG/ML (0-125); TOTAL CARBON DIOXIDE 29.7 MMOL/L (24-32); eCRCL 43 ML/MIN; eGFR 49 ML/MIN
[2025-03-27 17:36] VITALS: PULSE 102; RESP 20; O2SAT 97
[2025-03-27] MEDS: ketorolac trometh 30MG/ML vial 30 MG/ML VIAL IV ONE (18:09)
[2025-03-27] MEDS: normal saline 500ml IV soln 500 ML IV ONE ×2 (19:00→20:49)
[2025-03-27 19:48] LABS: ETHANOL < 10 MG/DL (<10)
[2025-03-27 20:08] LABS: LACTIC SEPSIS 1.3 MMOL/L (0.4-2.0)
--- NOTE | 2025-03-27 20:13 | RADIOLOGY REPORT ---
Procedure: CT CT [facility] Study Date and Requested Time: 03/27/2025 07:49 PM History: DECREASED LEVEL OF CONSCIOUSNESS Comparison: CT CT HEAD on DOS: 03/16/25, CT CT FACIAL BONES/SOFT TISSUE on DOS: 09/19/23, CT CT HEAD on DOS: 09/19/23 Dose: CTDI: 63.34 mGy DLP: 1162.98 mGycm Technique: Multiplanar images obtained through the brain without intravenous contrast. Findings: [id number] diffuse brain Atrophy. Mild chronic small vessel ischemic changes. Bilateral basal g anglia physiologic calcification. No hemorrhages, masses, mass effect, midline shift, herniation or cytotoxic edema following a large v ascular territory. No intra-axial or extra-axial fluid collections. No evidence of hydrocephalus. The basal cisterns are patent. The pituitary gland, sella and parasellar regions are unremarkable. The cerebellar tonsils are in nor mal position. The cerebellum is unremarkable. Right globe scleral banding. Bilateral lens replacement. Otherwise, orbits and globes are unremarkabl e. Near-complete opacification of the right sphenoid sinus. The remainder of the paranasal sinuses a nd mastoids are clear. There are no worrisome calvarial lesions. Impression: No evidence of acute intracranial abnormality. Right sphenoid sinus disease.
[2025-03-27] MEDS: lactulose 20gm/30ml cup PO ONE (20:49)
[2025-03-27 21:15] LABS: LEUKOCYTE ESTERASE ,URINE NEGATIVE (Neg); NITRITES, URINE NEGATIVE (Neg); OCCULT BLOOD,URINE NEGATIVE (Neg)
[2025-03-27 21:18] LABS: UA COLLECTION TYPE STRAIGHT CATH
[2025-03-27 21:27] LABS: URINE AMPHETAMINE SCREEN NEGATIVE (Neg); URINE BARBITUATE SCREEN NEGATIVE (Neg); URINE BENZODIAZEPINES SCREEN POSITIVE (Neg); URINE CANNABINOID SCREEN NEGATIVE (Neg); URINE COCAINE SCREEN NEGATIVE (Neg); URINE METHADONE SCREEN NEGATIVE (Neg); URINE OPIATE SCREEN POSITIVE (Neg); URINE PHENCYCLIDINE SCREEN NEGATIVE (Neg)
[2025-03-27 22:50] VITALS: PULSE 87; RESP 16; O2SAT 99
[2025-03-27] MEDS ORDERED: bisacodyl 10mg suppository rectal RC PRN (23:20)
[2025-03-27] MEDS ORDERED: magnesium hydroxide 30ml (MOM) UD suspension PO PRN ×2 (23:20→23:30)
[2025-03-27] MEDS ORDERED: potassium Cl 20 mEq SR tablet PO PRN (23:30)
[2025-03-27] MEDS ORDERED: magnesium Cl slow-release 64mg tablet PO PRN (23:30)
[2025-03-27] MEDS ORDERED: mag hydrox/Alum hydrox/simeth 30ml oral suspension PO PRN (23:30)
[2025-03-27] MEDS ORDERED: potassium Cl 40MEQ/1/2NS 520ml 520 ML IV PRN (23:30)
[2025-03-27] MEDS ORDERED: magnesium sulf-water 4G/100mL 100 ML IV PRN (23:30)
[2025-03-27] MEDS ORDERED: magnesium sulf-water 2g/50mL 50 ML IV PRN (23:30)
--- NOTE | 2025-03-27 23:39 | HISTORY AND PHYSICAL-Residence ---
History & Physical Providers to CC Resident Creating Document: TIARRA MURILLO, RES ~ History of Present Illness Primary Medical Doctor: Ramya VO at [facility], Dr. Aponte Cardiology, Dr. Wray, Pulmonology Reason for Admit\Complaint: Chronic Liver Disease/Hepatic Encelopathy History of Present Illness This is a 69-year-old female known case of chronic liver disease, chronic pancreatitis, obstructive sleep apnea.She was admitted recently at [facility], she is being transfered from [facility] to [facility] today because according to her she was unconscious she was not able to wake up then her oxygen saturation went upto to 65, patient looks very sick and was not orientated. She started using oxygen at about 2 L/min in her home for the past three weeks. Patient is disorientated, so she was not able to provide history, i called her he gave me history about her and told me she is DNR as its mentioned in trust, and i also tried to obtain her history from previous visits in EMR. Allergies: Coded Allergies: brexpiprazole (Verified Allergy, Unknown, 02/16/24) valbenazine (Verified Allergy, Unknown, 02/16/24) Home Medications Home Medications Active Reported Furosemide 80 Mg Tablet 1 Tab PO DAILY Ondansetron Odt (Ondansetron HCl) 4 Mg Tab.rapdis 1 Tab PO Q8H PRN Lidocaine 5 % Adh..patch 1-2 Patch TOP DAILY PRN Morphine Sulfate Er (Morphine Sulfate) 15 Mg Tablet.er 1 Tab PO TID Escitalopram Oxalate 10 Mg Tablet 15 Mg PO DAILY Gabapentin 400 Mg Capsule 1 Cap PO TID Past Medical History Past Medical History Osteoporosis She is undergoing evaluation with Dr. Wray for chronic hypoxemic respiratory failure, uses 2 L of oxygen at home Nonspecific colitis Obstructive sleep apnea Chronic pancreatitis Chronic liver disease diagnosed three months ago Chronic back pain Past Surgical History Surgical History Comment Back and cervical fusion surgery Bowel resection Past Social History Social History Comment Ex-smoker, quitted 20 years ago, history of 10 pack years Drinks 4 oz of bourbon a day Denies illicit drug use Independent for ADLs Lives with her Alcohol Use: Occasionally Drug Use: None Lives with: Family Lives In: Home Occupation: unemployed, retired Exam Vitals: Vital Signs Date Time Temp Pulse Resp B/P (MAP) Pulse Ox O2 Delivery O2 Flow Rate FiO2 8/6/25 23:06 85 16 116/53 (74) 97 4.0 03/27/25 22:50 Nasal Cannula* 36 03/27/25 20:44 98.8 Diagnostic Data Last Recorded Lab Results: 03/27/25 1556 03/27/25 1556 Advance Care Planning Advanced Care plannin - 30 Minutes Additional Plan This is a 69-year-old female known case of chronic liver disease, chronic pancreatitis, obstructive sleep apnea.She was admitted recently at [facility], she is being transfered from [facility] to [facility] today because according to her she was unconscious she was not able to wake up then her oxygen saturation went upto to 65, patient looks very sick and was not orientated. Acute hypoxemic/Hypercapneic Respiratory failure ALBERTO/OHS -abg- ph pco2 , po2, hco3 -initially on BiPAP, sats improved and currently on oxygen via NC at 4 L/min -we will repeat ABG to look for improvement in pCO2, pCO2 still high patient might probably need BiPAP -chest x-ray showed right middle atelectasis, no pneumonia -suspect respiratory failure likely secondary to OHS triggered by benzos/opioids -avoid benzos and opioids -continue CPAP during the night Altered mental status-multifactorial 2/2 Hepatic Encephalopathy grade 2 Secondary to liver cirhosiss 2/2 polypharmacy 2/2 CO2 Norcosis -She does have symptoms like increased drowsiness, disorientated. -Ammonia is elevated to 71 -We will start on lactulose 20 mg q.6, rifaximin 550 mg q.12, goal is to have at least 3-4 soft bowel movements a day. - Follow up with ammonia level. -avoid opiates and benzos, continue delirium precautions, aspiration precautions Alcoholic Cirrhosis MELD-score is 33 CTP Hyperbilirubinemia -Secondary to alcohol etiology most likely -seum bilirubin 2.8 AST 68 ALT 17 ALP 98 -AST/ALT ratio is 4 indicative of alcoholic liver disease - Abdominal ultrasound done on 03/17/25 shows Hepaticsteatosis. Mild nodularity may represent early changes of cirrhosis. -Hep B/C serology- negative -monitor CMP, PT/INR Ascites - Due to cirrhosis - albumin is 2.9 - started on lasix 20 mg and Spirnoloactone 12.5 mg daily PO once daily - plan for therapeutic Paracentesis Chronic pancreatitis Dilated CBD -Ct abdomen done 03/16/25 on which shows Pancreas is atrophic with dilatation of pancreatic duct and calcifications consistent with chronic pancreatitis -currently no signs of acute pancreatitis -follow up with amylase and lipase. - Normocytic Anaemia -Most likely due to chronic liver disease -iron panel suggestive of ACD and SHELDON -started on venofer 200 mg once daily -Occult blood test ordered. -Patient may beenfit from GI Consult on outpatient basis for EGD to rule out esophageal varices. Dvt Prophylaxis: Heparin Code Status: DNR Attending Physician Attestation Evaluation via HIPAA compliant A/V device. I discussed the case with the resident and I agree with the resident's documentation with exceptions as below. 69-year-old woman with multiple chronic health conditions including alcohol- related hepatic cirrhosis transferred from a [facility] facility for altered mentation and found on diagnostic evaluation in the ED to have hepatic encephalopathy and hypercapnia. The treatment plan includes: Treatment of hepatic encephalopathy with lactulose and rifaxamin. NIV with BiPAP. Ceftriaxone for possible SBP while awaiting possible diagnostic/therapeutic paracentesis. Time spent 50 minutes. Date of Service: Mar 27, 2025 Billing Provider: SURAJ MARTINI MD, SANJAY, RES Mar 27, 2025 23:39 JUDITH QUINONEZ, RES Mar 28, 2025 01:27 SURAJ MARTINI MD Mar 28, 2025 03:25
[2025-03-28] VITALS (14 sets, daily range): BP systolic 113–140; BP diastolic 44–59; PULSE 76–82; RESP 14–20; TEMP 97–98.2; O2SAT 95–98
[2025-03-28 00:39] LABS: INR 1.7 INR
[2025-03-28 00:52] LABS: CREATININE 1.17 MG/DL (0.40-0.90); TOTAL CARBON DIOXIDE 29.6 MMOL/L (24-32); eCRCL 41 ML/MIN; eGFR 46 ML/MIN
[2025-03-28] MEDS: lactulose 20gm/30ml cup PO SCH (02:00)
[2025-03-28 07:48] LABS: MEAN PLATELET VOLUME 7.6 FL (7.4-10.4); RED CELL DISTRIBUTION WIDTH 25.8 % (11.5-14.5)
[2025-03-28] MEDS: docusate sod 100mg capsule PO SCH ×2 (08:00→08:26)
[2025-03-28] MEDS ORDERED: furosemide 10 MG/1 ML 10ml inj IV SCH (08:00)
[2025-03-28] MEDS: K and/or MAG REPLACEMENT MC SCH (08:00)
[2025-03-28 08:21] LABS: APTT 33 SECONDS (22-32); INR 1.9 INR
[2025-03-28] MEDS: rifaximin 550mg tablet PO SCH ×2 (08:25→19:21)
[2025-03-28] MEDS: multivitamins, therapeutics tablet PO SCH (08:25)
[2025-03-28] MEDS: heparin, porcine 5000 units/ml vial SQ SCH (08:28)
[2025-03-28] MEDS: furosemide 10 MG/1 ML 10ml inj IV SCH (08:50)
[2025-03-28 08:55] LABS: CREATININE 1.09 MG/DL (0.40-0.90); PHOSPHORUS 3.1 MG/DL (2.3-4.5); TOTAL CARBON DIOXIDE 27.6 MMOL/L (24-32); eCRCL 44 ML/MIN; eGFR 50 ML/MIN
[2025-03-28] MEDS: CefTRIAXone/D5W-Rocephin 1gm 50 ML IV SCH (08:56)
[2025-03-28] MEDS: iron sucrose complex injection 200 MG in normal saline 100ml IV soln 100 ML IV SCH (09:10)
--- NOTE | 2025-03-28 13:37 | PROGRESS NOTE ---
Daily Progress Note Providers to CC ~ Antibiotic Timeout Antibiotic Ordered?: Yes Subjective No acute events overnight. Patient examined at bedside. No new complaints, not in acute distress. Patient is A&Ox3 today. Patient denies chest pain, sob, palpitations, abdominal pain, n/v/d, melena, hematemesis, hematochezia. ABG showed compensated respiratory acidosis, labs notable for elevated INR at 1.9, hepatitis panel negative, INR 1.9, ammonia elevated, transaminitis, elevated t.bili, abd imaging (03/17/25) positive for cirrhosis. Started on lactulose/rifaximin, propranolol, [id number], given recent evidence of ascites during recent hospital stay, will start ceftriaxone prophylactically although no fever, no signs of increasing ascites, or abdominal pain. Objective Vital Signs Date Time Temp Pulse Resp B/P (MAP) Pulse Ox O2 Delivery O2 Flow Rate FiO2 03/28/25 08:00 17 96 Nasal Cannula 2.0 03/28/25 06:30 76 03/28/25 01:42 98.0 127/59 (81) 36 Result Diagram: 03/28/25 0709 03/28/25 0709 Physical Exam General: Generalized weakness, A&Ox3, NAD HEENT: Normocephalic, PERRLA Neck: Supple, trachea midline, no JVD Chest: Clear to auscultation bilaterally Cardiovascular: RRR, S1&S2 GI: Soft and nontender Extremities: No cyanosis/clubbing/or edema THEATER PROJECTIONIST: CN II-XII intact, no focal deficits Musculoskeletal: No paraspinal muscle tenderness, no muscle spasm Skin: Warm and intact Coagulation Studies Laboratory Tests Test 03/28/25 07:09 Prothrombin Time 18.1 SECONDS (9.0-12.0) H INR International Normalized Ratio 1.9 INR Activated Partial Thromboplast Time 33 SECONDS (22-32) H Coagulation Comments Problem\Assessment\Plan This is a 69-year-old female known case of chronic liver disease, chronic pancreatitis, obstructive sleep apnea.She was admitted recently at [facility], she is being transfered from [facility] acute care to [facility] today because according to her she was unconscious she was not able to wake up then her oxygen saturation went upto to 65, patient looks very sick and was not orientated. Assessment & Plan Acute hypoxic hypercapneic respiratory failure Respiratory acidosis ALBERTO/OHS Class I obesity -initially on BiPAP, sats improved and currently on oxygen via NC, continue CPAP at night Acute decompensated liver failure Acute hepatic encephalopathy Alcohol-induced cirrhosis, MELD 33 Portal hypertension Chronic pancreatitis -hepatitis panel negative, INR 1.9, ammonia elevated, transaminitis, elevated t.bili, abd US (03/17/25) positive for cirrhosis -start lactulose/rifaximin, propranolol, [id number], given recent evidence of ascites will start ceftriaxone although no fever, no signs of increasing ascites, or abdominal pain; will follow US abdomen Normocytic Anemia -ferritin wnl, denies hematemesis, melena, hematochezia, follow FOBT Diet: Sodium restricted diet Code Status: DNR Date of Service: Mar 28, 2025 Billing Provider: ANGELINA REN Common Visit Codes: [id number] INP/OBS CARE(HIGH) ANGELINA REN Mar 28, 2025 13:37
[2025-03-28] MEDS ORDERED: ESCI20TA39 PO (13:57)
[2025-03-28] MEDS: propranolol 10mg tablet PO SCH (19:19)
[2025-03-29 01:56] LABS: OCCULT BLOOD STOOL NEGATIVE (Neg)
[2025-03-29 05:18] LABS: APTT 33 SECONDS (22-32); INR 1.8 INR
[2025-03-29 05:25] LABS: CREATININE 1.01 MG/DL (0.40-0.90); PHOSPHORUS 2.8 MG/DL (2.3-4.5); TOTAL CARBON DIOXIDE 27.2 MMOL/L (24-32); eCRCL 47 ML/MIN; eGFR 54 ML/MIN
[2025-03-29 05:28] LABS: MEAN PLATELET VOLUME 7.6 FL (7.4-10.4)
[2025-03-29 05:30] LABS: RED CELL DISTRIBUTION WIDTH 26.3 % (11.5-14.5)
[2025-03-29 06:00] VITALS: BP 124/56; PULSE 76; RESP 18; TEMP 98.6; O2SAT 99
[2025-03-29 07:30] VITALS: BP 134/64; PULSE 74
[2025-03-29] MEDS: ESCITALOPRAM 10 mg tablet 10 MG TABLET PO SCH (07:48)
[2025-03-29] MEDS: ondansetron/PF 4mg/2ml inj IV PRN (07:50)
[2025-03-29 08:19] LABS: PLATELET ESTIMATE NORMAL
--- NOTE | 2025-03-29 09:56 | RADIOLOGY REPORT ---
INDICATION: acute liver failure TECHNIQUE: Multiple real-time sonographic images were obtained of the right upper quadrant. COMPARISON: US ULTRASOUND OF ABDOMEN on DOS: 03/17/25, CT CT ABDOMEN on DOS: 03/16/25, CT CT ABDOMEN PE LVIS on DOS: 02/16/24 FINDINGS: The liver demonstrates homogeneous echotexture without focal mass lesions. The liver measu res 19 cm. There is no intrahepatic or extrahepatic ductal dilatation. The common duct measures 0.8 cm. The gallbladder is without evidence of stone or sludge. The gallbladder wall measures 0.8 cm and is w ithin normal limits. The right kidney measures 8.9 cm. The right kidney is normal in contour, size, and shape. The echogen icity is normal. There is no hydronephrosis. The pancreas is not well visualized due to overlying bowel gas. IMPRESSION: Thickened gallbladder wall, pericholecystic fluid and prominent common bile duct.
[2025-03-29 10:00] VITALS: BP 131/60; PULSE 66; RESP 16; TEMP 97.4; O2SAT 90
[2025-03-29] MEDS ORDERED: [UNRECOGNIZED DRUG - CODE] PO (11:35)
[2025-03-29] MEDS: loperamide 2mg capsule PO ONE (12:07)
--- NOTE | 2025-03-29 15:15 | PROGRESS NOTE ---
Daily Progress Note Providers to CC ~ Antibiotic Timeout Antibiotic Ordered?: No Subjective No acute events overnight. Patient examined at bedside. No new complaints, not in acute distress. Patient is A&Ox3. Patient denies chest pain, sob, palpitations, abdominal pain, n/v/d, melena, hematemesis, hematochezia. ABG showed compensated respiratory acidosis, labs notable for elevated INR at 1.9, hepatitis panel negative, INR 1.9, ammonia elevated, transaminitis, elevated t.bili, abd imaging (03/17/25) positive for cirrhosis. Continued on propranolol, [id number]. Lactulose discontinued given liquid stool. Rectal tube placed. Objective Vital Signs Date Time Temp Pulse Resp B/P (MAP) Pulse Ox O2 Delivery O2 Flow Rate FiO2 03/29/25 11:56 Nasal Cannula 2.0 03/29/25 10:00 97.4 66 16 131/60 (83) 90 03/29/25 03:37 28 Result Diagram: 03/29/255 03/29/255 Physical Exam General: Generalized weakness, A&Ox3, NAD HEENT: Normocephalic, PERRLA Neck: Supple, trachea midline, no JVD Chest: Clear to auscultation bilaterally Cardiovascular: RRR, S1&S2 GI: Soft and nontender Extremities: No cyanosis/clubbing/or edema HAND BUTTON SPLITTER: CN II-XII intact, no focal deficits Musculoskeletal: No paraspinal muscle tenderness, no muscle spasm Skin: Warm and intact Coagulation Studies Laboratory Tests Test 03/29/25 04:45 Prothrombin Time 17.7 SECONDS (9.0-12.0) H INR International Normalized Ratio 1.8 INR Activated Partial Thromboplast Time 33 SECONDS (22-32) H Coagulation Comments Problem\Assessment\Plan This is a 69-year-old female known case of chronic liver disease, chronic pancreatitis, obstructive sleep apnea.She was admitted recently at [facility], she is being transfered from [facility] to [facility] today because according to her she was unconscious she was not able to wake up then her oxygen saturation went upto to 65, patient looks very sick and was not orientated. Assessment & Plan Acute hypoxic hypercapneic respiratory failure Respiratory acidosis ALBERTO/OHS Class I obesity -initially on BiPAP, sats improved and currently on oxygen via [place], continue CPAP at night Acute decompensated liver failure Acute hepatic encephalopathy Alcohol-induced cirrhosis, MELD 33 Portal hypertension Chronic pancreatitis -hepatitis panel negative, INR 1.9, ammonia elevated, transaminitis, elevated t.bili, abd US (03/17/25) positive for cirrhosis -start lactulose/rifaximin, propranolol, [id number], given recent evidence of ascites will start ceftriaxone although no fever, no signs of increasing ascites, or abdominal pain; will follow US abdomen -03/29: Lactulose discontinued given liquid stool. Rectal tube placed. Normocytic Anemia -ferritin wnl, FOBT negative, H/H stable Diet: Sodium restricted diet Code Status: DNR Date of Service: Mar 29, 2025 Billing Provider: ANGELINA REN Common Visit Codes: 44308-[id number] INP/OBS CARE(HIGH) ANGELINA REN Mar 29, 2025 15:15
[2025-03-29 18:00] VITALS: BP 134/45; PULSE 70; RESP 18; TEMP 97.8; O2SAT 98
[2025-03-29 20:00] VITALS: RESP 18; O2SAT 98
[2025-03-29] MEDS ORDERED: lactulose 20gm/30ml cup PO SCH (20:00)
[2025-03-29 22:00] VITALS: BP 106/49; PULSE 60; RESP 18; TEMP 98.2; O2SAT 97
[2025-03-30 05:40] LABS: MEAN PLATELET VOLUME 7.5 FL (7.4-10.4); RED CELL DISTRIBUTION WIDTH 26.4 % (11.5-14.5)
[2025-03-30 05:49] LABS: APTT 35 SECONDS (22-32); INR 1.9 INR
[2025-03-30 05:56] LABS: CREATININE 0.99 MG/DL (0.40-0.90); PHOSPHORUS 3.8 MG/DL (2.3-4.5); TOTAL CARBON DIOXIDE 28.0 MMOL/L (24-32); eCRCL 48 ML/MIN; eGFR 56 ML/MIN
[2025-03-30 06:00] VITALS: BP 107/40; PULSE 65; RESP 16; TEMP 97.8; O2SAT 92
[2025-03-30 08:00] VITALS: RESP 12; O2SAT 92
[2025-03-30] MEDS: potassium Cl 20 mEq SR tablet PO PRN (09:27)
[2025-03-30 10:00] VITALS: BP 115/51; PULSE 65; RESP 17; TEMP 97.7; O2SAT 97
--- NOTE | 2025-03-30 11:53 | DISCHARGE SUMMARY ---
Discharge Summary Providers to CC ~ Discharge Summary Admission Diagnosis: Acute liver failure/Hepatic encelophathy Hospital Course DATE OF ADMISSION: 03/27/25 DATE OF DISCHARGE: 03/30/25 Discharge Diagnosis\\Comment: Acute hypoxic hypercapneic respiratory failure Respiratory acidosis ALBERTO/OHS Class I obesity Acute decompensated liver failure Acute hepatic encephalopathy Alcohol-induced cirrhosis, MELD 33 Portal hypertension Chronic pancreatitis Normocytic Anemia Generalized weakness Operations\\Procedures: None Consultants: None Complications: None Condition on DC: Stable for transfer Discharge Summary: History of Present Illness From H&P: "This is a 69-year-old female known case of chronic liver disease, chronic pancreatitis, obstructive sleep apnea. She was admitted recently at [facility]. She is being transfered [facility] to [facility] today because according to her she was unconscious she was not able to wake up then her oxygen saturation went upto to 65, patient looks very sick and was not orientated. She started using oxygen at about 2 L/min in her home for the past three weeks. Patient is disorientated, so she was not able to provide history, i called her he gave me history about her and told me she is DNR as its mentioned in trust, and i also tried to obtain her history from previous visits in EMR." Hospital Course Diagnostic findings were notable for ABG indicating respiratory acidosis, hypoxia, elevated INR at 1.9, hyperammonemia, transaminitis, elevated t.bili, normocytic anemia. Ultrasound of abdomen taken on 03/17/25 during recent hospital stay revealed cirrhosis. Pertinent negative findings were urinalysis negative for urinary tract infection, chest x-ray negative for acute cardiopulmonary disease, normal lactic acid, no leukocytosis, negative guaiac. Patient was treated with BiPAP, lactulose, rifaximin, propranolol, Lasix, spironolactone. Patient was initially started on ceftriaxone empirically however, was discontinued with no signs of increasing ascites, abdominal pain, or fever. With the start of treatment, patient orientation came back to her baseline. A rectal tube was inserted temporary due to liquid stool which resolved by the day of discharge. Patient did not experience further complications throughout the entire hospital stay and remained clinically and hemodynamically stable. Patient was seen and examined on the day of discharge. On day of discharge, vss and labs unremarkable. All labs, diagnostic workups, discharge plan discussed with patient in details during visit before discharge. All questions and concerns answered to the best of my professional knowledge. Patient is to be discharged back to rehab for continued management. Physical Exam General: Generalized weakness, A&Ox 3, NAD HEENT: Normocephalic, PERRLA Neck: Supple, trachea midline, no JVD Chest: Clear to auscultation bilaterally Cardiovascular: RRR, S1&S2 GI: Soft and nontender Extremities: No cyanosis/clubbing/or edema AGRICULTURAL LOAN OFFICER: CN II-XII intact, no focal deficits Musculoskeletal: No paraspinal muscle tenderness, no muscle spasm Skin: Warm and intact *Problems/Diagnosis: (1) Hepatic encephalopathy Status: Acute Total Time Spent on D/C: > 30 Minutes Date of Service: Mar 30, 2025 Billing Provider: ANGELINA REN Common Visit Codes: 55715-RBY/OBS DISCH DAY >30min ANGELINA REN Mar 30, 2025 11:51
== END 2025-03-30 14:26 | DRG 441 ==
LOC: ER 15:18 → UNDOADMIN 22:45 → ED HOLD 22:45 → PCU 3S 03-28 01:30 → SUR 3N 03-28 22:00
PROVIDERS: ADMIT Internal Medicine Critical Care Medicine; ATTEND Nurse Practitioner Family
PROC: 5A09357 Assistance with Respiratory Ventilation, Less than 24 Consecutive Hours, Continuous Positive Airway Pressure (ICD-10-PCS; principal; 2025-03-27)
PROC: 5A09357 Assistance with Respiratory Ventilation, Less than 24 Consecutive Hours, Continuous Positive Airway Pressure (ICD-10-PCS; 2025-03-28)
PROC: 5A09357 Assistance with Respiratory Ventilation, Less than 24 Consecutive Hours, Continuous Positive Airway Pressure (ICD-10-PCS; 2025-03-29)
PROC: 5A09357 Assistance with Respiratory Ventilation, Less than 24 Consecutive Hours, Continuous Positive Airway Pressure (ICD-10-PCS; 2025-03-30)
DX: K72.00 Acute and subacute hepatic failure without coma (principal); J96.21 Acute and chronic respiratory failure with hypoxia; J96.22 Acute and chronic respiratory failure with hypercapnia; E87.29 Other acidosis; E66.2 Morbid (severe) obesity with alveolar hypoventilation; K76.6 Portal hypertension; K86.1 Other chronic pancreatitis; K76.82 Hepatic encephalopathy; K70.31 Alcoholic cirrhosis of liver with ascites; K70.30 Alcoholic cirrhosis of liver without ascites; D64.9 Anemia, unspecified; G89.29 Other chronic pain; M54.9 Dorsalgia, unspecified; Z66 Do not resuscitate; E80.6 Other disorders of bilirubin metabolism; Z87.891 Personal history of nicotine dependence; Z68.34 Body mass index [BMI] 34.0-34.9, adult; Z88.8 Allergy status to other drugs, medicaments and biological substances
CPT/HCPCS: 36415; 36600; 70450; 71045; 76700; 80048; 80053; 80305; 80320; 81003; 82140; 82150; 82272; 82803; 82948; 83605; 83690; 83735; 83880; 84100; 84443; 84484; 85007; 85008; 85018; 85025; 85610; 85730; 87040; 87081; 93005; 94660; 94760; 96361; 96374; 97116; 97161; 97530; 97535; 99291; A4314; A5200; A6250; C1758; G0378; J0696; J1644; J1756; J1885; J1938; J2405; J7040; J7070